=== PATIENT | male | born 1965 | race Caucasian/White ===

== ENCOUNTER 2022-12-29 06:24 | Inpatient (IN) ==
[2022-12-29] MEDS ORDERED: NITROGLYCERIN SL 0.4 MG/TAB TAB SL STA (06:54)
[2022-12-29] MEDS ORDERED: ASPIRIN 81 MG CHEW PO STA (06:54)
--- NOTE | 2022-12-29 06:57 | Emergency Department Note ---
Impression & Plan Left-sided chest pain, Abnormal ECG, T wave inversion in EKG ED Provider Note Name: AILYN PUENTE Age: 57 Sex: M Arrives Via: Walk-In Informant: Patient, ED Provider: Juan R Contreras MD Chief Complaint: Chest pain Impression: As per impressions above Medical Decision Makin-year-old gentleman with a history of hyperlipidemia and BPH who has multiple family members including brothers who had MIs arrives for evaluation of left- sided chest pressure. EKG clearly shows deep lateral T wave inversions and other evidence of ischemia. When compared to an EKG from outside records this is clearly a change. He was given aspirin and sublingual nitroglycerin. In the setting of significant risk factors, patient description, abnormal EKG with acute change from previous there is high concern for ACS and heart alert called for Telecasting Technician activation. I did have several long discussions with patient and that this may not be ACS but could be pleurisy, pericarditis or myocarditis or multiple other causes of chest pain, especially in the setting of him having a viral-like illness for the last few weeks that has resolved. Without leg swelling calf pain or risk factors I think PE is unlikely. His symptoms do not seems consistent with a dissection and I think Telecasting Technician is more important than getting a CTA at this time. I will note that there is some delay to getting labs and a heart alert was not postponed because of this difficulty with labs. Reportedly there was a software issue in the laboratory. Prior Medical Record and Triage/Nursing Notes reviewed by Me External chart review by me including external EKG and outpatient records. Differential: Cardiac ischemia, aortic dissection, pulmonary embolism, pneu mothorax, pneumonia, pericarditis, myocarditis, esophageal rupture, GERD, cholecystitis, pancreatitis, musculoskeletal, as well as other pathologies. Vital Signs: reviewed and remarkable for mild hypertension on arrival Interventions: Aspirin 324 mg p.o., sublingual nitroglycerin 0.4 mg Labs:Reviewed and remarkable for pending at time of transfer to Telecasting Technician, initial CBC unremarkable Imagin view chest x-ray interpreted by me reveals no pneumothorax, pneumonia, widened mediastinum as per my interpretation. Indication chest pain. EKG:As per my interpretation. Indication chest pain. Sinus bradycardia 55 bpm and a QTc of 426. No overt ectopy. There are significant concerns for ischemia. There are diffuse lateral inferior T wave inversions with anterior u pswing of ST elevation. This is an acute change from his EKG in the outpatient setting of 2018. Cardiac/Tele Monitoring: Cardiac Monitoring: An Order was placed for continuous cardiac monitoring. The monitor shows a rate of 60 with a normal sinus rhythm. Consults:Dr Rosario Interventional Cardiology. Dr Isabela Gomez hospitalist Plan: Disposition:Transfer to Telecasting Technician Condition: Good History of Present Illness:57-year-old male arrives for evaluation of chest pain. Patient with left-sided pressure-like chest pain without radiation no other symptoms for the last 2 days. Started yesterday morning when he had woken up and really resolved after some time. Did not really notice anything about day yesterday and then again this morning woke up with increased pressure which is gradually improved though still notes some mild discomfort currently. Denies any current shortness of breath but does note a mild cough which she feels the cough does make symptoms a bit worse. Laying flat movement or walking does not make the chest pain worse. Denies any falls, trauma, injuries. No exposures. He was sick for the last 3 weeks with fevers chills cough cold symptoms which resolved a few days ago. now has similar illness. Denies any previous CAD history but notes he has a known abnormal EKG in the past. He had an echo/stress test about 8 years ago which she notes was normal. He has not had any cardiac issues since. Does note that both his brothers and grandfather had MIs. Patient does not smoke. He does have a history of hyper cholesterolemia. Does not have diabetes or hypertension. Past History:Dyslipidemia, abnormal EKG, kidney stones, BPH Home Medications:rosuvastatin, Flomax Allergies:Amoxicillin Vitals:Blood Pressure: 160/82, Pulse 53, RR 36.4, T 97C, O2 % on RA Physical Exam: GENERAL: Patient is mildly anxious appearing and in no acute distress. RESPIRATORY: No dyspnea. Clear to auscultation and equal bilaterally. No wheeze, no rhonchi. CARDIOVASCULAR: Regular rate and rhythm.No murmurs, rubs, gallops appreciated. GASTROINTESTINAL: Abdomen soft, non-tender, no peritonitis. EXTREMITIES: Normal motion all extremities, no cyanosis, no edema. NEUROLOGIC: Alert and oriented, no focal neuro deficits SKIN: No rash, no jaundice, no diaphoresis. PSYCH: Appropriate GCS: 15 ED Course: Times/Reassessments: Patient with resolution of chest pain after sublingual nitro feeling much better. He looks well and was taken to Telecasting Technician in stable condition Critical Care: I have personally spent 32 minutes of critical care time in the direct management of this patient. Acute WA per history and EKG requiring Telecasting Technician activation and heart alert. This was a life/limb threatening event. This 32 minutes is in excess of all separately billable procedures. Juan R Contreras MD Past Med/Surg History Medical History BPH w urinary obs/LUTS Cervical disc disease Dyslipidemia Mitral regurgitation Surgical History Hx of removal of cyst Sebaceous cyst removal 2009 (Dr. Li) Family History Brother Heart disease Brother Heart disease Father Hypertension Cancer Mother Cancer Social History Smoking Status: Never smoker Second Hand Exposure: No; Hx Alcohol Use: Yes Alcohol type: beer and hard liquor Hx Substance Use: No Preferred Language: Ecuadorean Communication Ability: Effective Lead Sprinkler Required: No Beliefs That Will Affect Care: None Current Living Situation: Spouse Feels Safe at Home: Yes Assistive Devices: None and Glasses Allergies Allergies Allergy/AdvReac Type Severity Reaction Status Date / Time codeine Allergy . Verified 02/10/13 20:47 Home Meds Home Medications Medication Instructions Recorded Confirmed rosuvastatin 10 mg tablet (Crestor) 10 mg PO DAILY 12/29/22 12/29/22 tamsulosin 0.4 mg capsule (Flomax) 0.4 mg PO DAILY 12/29/22 12/29/22 Previous Rx's Medication Instructions Recorded indomethacin 50 mg capsule 50 mg PO TID 7 days #21 caps 12/30/22 Results & Data (ED) Vital Signs Vital Signs - 24 hr 12/29/22 06:30 Temperature 36.4 C L Temperature Source Temporal Artery Scan Pulse Rate 53 L Respiratory Rate 20 Respiratory Effort / Characteristics Non-Labored Spontaneous Respiratory Depth Normal Blood Pressure 160/82 H Blood Pressure Mean 108 Pulse Oximetry 97 Oxygen Delivery Method Room Air Sepsis Recent Fever Within 48 Hours No Sepsis New/Unexplained Change in Mental Status N/A Sepsis Action Taken by Nursing No Action Required Laboratory Data 12/29/22 06:40 12/29/22 06:40 Lab Results 12/29/22 12/29/22 12/29/22 Range/Units 06:40 06:40 07:10 WBC 7.46 (4.8-10.8) K/ul RBC 5.24 (4.70-6.10) M/uL Hgb 15.4 (14.0-18.0) g/dl Hct 45.0 (42.0-52.0) % MCV 85.9 (80.0-100.0) fL MCH 29.4 (25.0-34.0) pg MCHC 34.2 (32.0-36.0) g/dL RDW Std Deviation 41.3 (36.4-46.3) fL RDW Coeff of Job 13.3 (11.5-14.5) % Plt Count 234 (130-400) K/uL MPV 11.0 (9.4-12.4) fL Immature Gran % (Auto) 0.3 % Neut % (Auto) 53.6 % Lymph % (Auto) 28.7 % [place] % (Auto) 9.1 % Eos % (Auto) 7.5 % Baso % (Auto) 0.8 % Neut # (Auto) 4.00 (1.40-6.50) K/uL Lymph # (Auto) 2.14 (1.2-3.4) K/uL [place] # (Auto) 0.68 H (0.11-0.59) K/uL Eos # (Auto) 0.56 H (0-0.50) K/uL Baso # (Auto) 0.06 (0-0.2) K/uL Immature Gran # (Auto) 0.02 (0.01-0.20) K/uL Sodium 140 (136-145) mmol/L Potassium 4.6 (3.5-5.1) mmol/L Chloride 109 H (98-107) mmol/L Carbon Dioxide 23 (21-32) mmol/L Anion Gap 8 (3-11) BUN 17 (6-23) mg/dl Creatinine 1.27 (0.6-1.4) mg/dl Est Cr Clr Drug Dosing 68.3 ml/min Est GFR ( Amer) 71.7 ml/min Est GFR (Non-Af Amer) 61.9 ml/min BUN/Creatinine Ratio 13.4 (10-20) Glucose 103 H (70-99(Fasting)) mg/dl Calcium 8.9 (8.6-10.3) mg/dl Total Bilirubin 0.4 (0.2-1.0) mg/dl AST 24 (13-39) U/L ALT 25 (7-52) U/L Alkaline Phosphatase 44 (34-104) U/L Troponin I High Sens 7.0 (0-20) pg/ml Total Protein 6.3 (6.0-8.3) gm/dl Albumin 3.9 (3.4-5.0) gm/dl Globulin 2.4 L (2.5-4.0) gm/dl Albumin/Globulin Ratio 1.6 (0.9-2) Lipase 41 (11-82) U/L SARS-CoV-2, RNA, NAAT NEGATIVE (NEGATIVE) Administered Medications Discontinued Medications Aspirin (Aspirin 81 Mg Chew) 324 mg PO NOW STA Stop: 12/29/22 06:55 Last Admin: 12/29/22 07:02 Dose: 324 mg Documented By: EDILSON Fentanyl Citrate (Fentanyl Citrate Pf 100 Mcg/2 Ml Vial) Confirm Administered Dose 100 mcg .ROUTE .STK-MED ONE Stop: 12/29/22 07:08 Last Admin: 12/29/22 10:04 Dose: Not Given Documented By: DLF Heparin Sodium (Porcine) (Heparin (Porcine) 1000 Unit/Ml 10 Ml (Telecasting Technician Use Only)) Confirm Administered Dose 10,000 units .ROUTE .STK-MED ONE Stop: 12/29/22 07:07 Last Admin: 12/29/22 10:02 Dose: Not Given Documented By: DLF Heparin Sodium/Sodium Chloride (Heparin In Nss Infusion 1000 Unit/500 Ml (2 U/Ml) Bag) Confirm Administered Dose 3,000 units IV .STK-MED ONE Stop: 12/29/22 07:08 Last Admin: 12/29/22 10:05 Dose: Not Given Documented By: DLF Indomethacin (Indomethacin 25 Mg Cap) 25 mg PO TIDM NISA Stop: 01/29/23 08:59 Last Admin: 12/30/22 09:57 Dose: 25 mg Documented By: FRANSISCA Lisinopril (Lisinopril 5 Mg Tab) 5 mg PO QAM [facility] Stop: 01/28/23 08:59 Last Admin: 12/30/22 09:28 Dose: 5 mg Documented By: Admin: 12/29/22 11:26 Dose: 5 mg Documented By: FRANSISCA Midazolam HCl (Midazolam Hcl 1 Mg/Ml 2ml Vial) Confirm Administered Dose 2 mg .ROUTE .STK-MED ONE Stop: 12/29/22 07:08 Last Admin: 12/29/22 10:05 Dose: Not Given Documented By: FRANSISCA Nicardipine HCl (Nicardipine Hcl Inj 2.5 Mg/Ml 10 Ml Amp) Confirm Administered D ose 25 mg .ROUTE .STK-MED ONE Stop: 12/29/22 07:07 Last Admin: 12/29/22 10:02 Dose: Not Given Documented By: FRANSISCA Nitroglycerin (Nitroglycerin Sl 0.4 Mg/Tab Tab) 0.4 mg SL NOW [facility] Stop: 12/29/22 06:55 Last Admin: 12/29/22 07:02 Dose: 0.4 mg Documented By: EDILSON Nitroglycerin/Dextrose (Nitroglycerin/D5w 100mcg/Ml 20ml Syr) Confirm Administered Dose 2,000 mcg .ROUTE .STK-MED ONE Stop: 12/29/22 07:09 Last Admin: 12/29/22 10:16 Dose: Not Given Documented By: FRANSISCA Rosuvastatin Calcium (Rosuvastatin Calcium 10 Mg Tab) 10 mg PO QAM [facility] Stop: 01/28/23 08:59 Last Admin: 12/30/22 09:28 Dose: 10 mg Documented By: Admin: 12/29/22 11:26 Dose: 10 mg Documented By: FRANSISCA Tamsulosin HCl (Tamsulosin Hcl 0.4 Mg Cap) 0.4 mg PO DAILY [facility] Stop: 01/29/23 08:59 Last Admin: 12/30/22 09:28 Dose: 0.4 mg Documented By: FRANSISCA Discharge Plan Visit Data Chief Complaint: Chest Pain Stated Complaint: CHEST PAIN ED Provider: Juan R Contreras Discharge Problem: Left-sided chest pain, Abnormal ECG, T wave inversion in EKG Patient Disposition: Admitted As Inpatient Discharge Instructions Interventions: ED Discharge Assessment Last Done: 12/29/22 07:33
[2022-12-29] MEDS ORDERED: HEPARIN (PORCINE) 1000 UNIT/ML 10 ML (CATH LAB USE ONLY) ONE (07:06)
[2022-12-29] MEDS ORDERED: niCARdipine HCL INJ 2.5 MG/ML 10 ML AMP ONE (07:06)
[2022-12-29] MEDS ORDERED: MIDAZOLAM HCL 1 MG/ML 2ML VIAL ONE (07:07)
[2022-12-29] MEDS ORDERED: fentaNYL citrate PF 100 MCG/2 ML VIAL ONE (07:07)
--- NOTE | 2022-12-29 07:07 | XRay Report ---
XR chest 1V portable CLINICAL HISTORY: Chest pain, nonspecific COMPARISON STUDY: Chest radiograph February 10, 2013. FINDINGS: Lung volumes are at the lower limits of normal. Lungs are clear. There is no pneumothorax o r pleural effusion. Cardiac size is stable. Mediastinal contours are normal. There is no evidence for pulmonary edema. IMPRESSION: No acute cardiopulmonary findings. No change in appearance of the chest. ACT 112: Negative or not required by law. Electronically signed by: Leon Swift M.D. 12/29/2022 7:06 AM
[2022-12-29] MEDS ORDERED: NITROGLYCERIN/D5W 100MCG/ML 20ML SYR ONE (07:08)
[2022-12-29 07:27] LABS: Basophils # (auto) 0.06 K/uL (0-0.2); Basophils % (auto) 0.8 %; Eosinophils # (auto) 0.56 K/uL (0-0.50); Eosinophils % (auto) 7.5 %; Hemoglobin 15.4 g/dl (14.0-18.0); Immature Granulocytes # (auto) 0.02 K/uL (0.01-0.20); Immature Granulocytes % (auto) 0.3 %; Lymphocytes # (auto) 2.14 K/uL (1.2-3.4); Lymphocytes % (auto) 28.7 %; Mean Corpuscular Hemoglobin 29.4 pg (25.0-34.0); Mean Corpuscular Hgb Conc 34.2 g/dL (32.0-36.0); Mean Corpuscular Volume 85.9 fL (80.0-100.0); Monocytes # (auto) 0.68 K/uL (0.11-0.59); Monocytes % (auto) 9.1 %; Neutrophils % (auto) 53.6 %; Platelet Count 234 K/uL (130-400); RDW Coefficient of Variation 13.3 % (11.5-14.5); RDW Standard Deviation 41.3 fL (36.4-46.3); Red Blood Count 5.24 M/uL (4.70-6.10); White Blood Count 7.46 K/ul (4.8-10.8)
[2022-12-29] MEDS ORDERED: ACETAMINOPHEN 325 MG TAB PO PRN (08:07)
--- NOTE | 2022-12-29 08:45 | Cardiac Catheterization ---
[facility] Data: Systems Lead Cardiac Status Clinical evaluation leading to the procedure CAD Presenation: STEMI Anginal Classification: CCS IV Heart Failure: No Cardiogenic Shock within 24 Hours: No Cardiac Arrest within 24 Hours: No Imaging Studies Past 6 Months: No Stress Studies Past 6 Months: No STEMI OR Non-STEMI Symptom Onset Date: 12/29/22 Symptom Onset Time: 06:00 Thrombolytics: No Coronary Anatomy Dominant: Right Left Main (% Stenosis): Normal LAD (% Stenosis): Mid (30%) D1 (% Stenosis): Normal Circumflex (% Stenosis): Normal OM1 (% Stenosis): Normal OM2 (% Stenosis): Normal RCA (% Stenosis): Mid (30%) R PDA (% Stenosis): Normal R PL1 (% Stenosis): Normal Left Ventricular Angiography EF (%): 50 Diagnostic Physicians Name: Kristopher Rosario MD, PhD Closure Device Percutaneous Entry Location: Radial Closure Device: Radial Band Recommendations: Medical Therapy and/or Counseling Cardiac Cath Procedure Full Procedure Date December 29, 2022 Pre-Procedure Diagnosis Pre-Procedure Diagnosis: STEMI AUC Score AUC Score: 09 Post-Procedure Diagnosis Post-Procedure Diagnosis: Mild CAD, Elevated Intracardiac Pressures and Cardiothoracic Finding (LVH) Procedure(s) Performed Procedure(s) Performed: Coronary Angiography, Left Heart Cath and LV Angiography Assistant Grocery Store Manager Kristopher Rosario MD, PhD Estimated Blood Loss Estimated Blood Loss: Less than 10 mm Medication(s) Medication(s): Fentanyl, Heparin, Lidocaine 1%, Nicardipine, Nitroglycerin and Versed Summary of Findings Brief description: Patient was brought to the cardiac catheterization suite where he was shaved and prepped in sterile fashion. Sedated using IV Versed and fentanyl. Soft tissues of the right wrist were anesthetized using 2 mL of 1% Xylocaine. The right radial artery was accessed using modified Seldinger technique and a 6 Bangladeshi radial artery glide sheath was placed. Patient was provided anticoagulation with IV heparin and antispasmodics including nicardipine and nitroglycerin. All catheters were advanced and exchanged over a 0.035 J-tip wire. Left coronary angiography in orthogonal views with a 5 Bangladeshi JL 3.5 diagnostic catheter. Right coronary angiography in orthogonal views with a 5 Bangladeshi JR4 diagnostic catheter. Left heart cath and left ventriculogram were performed with a 5 Bangladeshi angled pigtail catheter. Diagnostic catheters were removed. Radial artery sheath was removed. Hemostasis was obtained using the TR band. Patient remained hemodynamically stable and asymptomatic. He was returned to the recovery area. This ended the case. Coronary angiography findings: LMT: Large-caliber vessel which bifurcates into the LAD and left circumflex. No angiographically significant disease. LAD: Large caliber and transapical. Provides an early septal trunk at the same level as a large branching first diagonal. Then, the mid segment has mild diffuse less than 30% stenosis. The remainder of the LAD and its branches have no more than mild luminal irregularities. LCx: Large caliber and nondominant. Travels in the AV groove giving a large atrial branch, a large branching OM1, and a small to medium caliber OM 2 before it terminates distally in the AV groove. There is diffuse mild luminal irregularities in the circumflex and its branches. RCA: Large caliber and dominant. Distally bifurcates into a large PDA and a branching posterolateral branch. There is diffuse mild disease with up to 30% stenosis in the midsegment just prior to the transition into the distal segment. The branch vessels have mild luminal irregularities. Left ventriculogram: LVEF is 50% Apical LVH Summary: 1. Mild nonocclusive coronary disease as described 2. Low normal EF with evidence of LVH 3. Mildly elevated left ventricular filling pressure Hemodynamics Rest Ao:: 120/78 mmHg, mean 97 mmHg Final Ao: 132/78 mmHg, mean 86 mmHg LV: 132/13 mmHg, LVEDP 25 mmHg Recommendations Recommendations: Medical Therapy and/or Counseling Radiation Exposure (mGy) 836 mGy Contrast (mls) 55 Anesthesia 1 mg IV Versed, 25 mcg IV fentanyl Procedural Complication(s) None Disposition PCU I attest to the content of the Intraoperative Record and any orders documented therein. Any exceptions are noted below. [facility] Card Cath Procedure Codes Cardiac Catheterization Procedure 1: Cardiovascular Cath Procedures: 76907 Coronaries and LHC (+/-LV) Moderate Sedation Procedure 1: Sedation/Anesthesia: 23878 Mod Sedation by the same physician;Init15 Min Child Age 5 & Up (Initial 15-minute) PG Care Time/CCT Total # of Minutes Spent Total Time Spent with Patient: Total time spent is greater than 50% in coordination of care (as documented) at patient's floor/unit and/or counseling patient:
--- NOTE | 2022-12-29 08:46 | Post Anesthesia Assessment ---
Date of Service December 29, 2022 Post Sedation Assessment Vital Signs Temp Pulse Pulse Resp BP BP Pulse Ox 12/29/22 08:30 46 L 18 114/70 93 12/29/22 08:15 46 L 18 117/75 94 12/29/22 08:05 47 L 18 118/72 94 12/29/22 07:22 54 L 23 131/85 96 12/29/22 07:11 94 12/29/22 07:11 57 L 16 131/85 93 12/29/22 07:08 55 L 12/29/22 06:30 36.4 C L 53 L 20 160/82 H 97 O2 Del Method 12/29/22 08:30 Room Air 12/29/22 08:15 Room Air 12/29/22 08:05 Room Air 12/29/22 07:22 Room Air 12/29/22 07:11 12/29/22 07:11 12/29/22 07:08 12/29/22 06:30 Room Air Recovery Score Activity: Moves 4 extremities Respiration: Deep Breath/Cough Circulation: +/-20% PreAnes Value Consciousness: Fully Awake Oxygen Saturation: > 92% On Room Air Post Anesthesia Score: 10 Discharge Sedation Level of Care: Fast Track Phase II Post Sedation Plan On clinical assessment, the patient appears to have tolerated the sedation without complications. Patient is recovering as anticipated. Patient will continue to be monitored by nursing and may be discharged when sedation discharge criteria are met per below protocol. Upon Completions of procedure up to 15 minutes continue every 5 minute vital signs and the P.A.R. score; then discharge to a Phase I or Fast Track to Phase II per the following guidelines: * Discharge Patient to appropriate Phase II area if PAR is 8 or greater or return to pre- procedure baseline. The post - procedure orders will be as directed. * If PAR score is less than 8 or not return to pre-procedure baseline then patient will follow Phase I monitoring till PAR is reached for Phase II. The Phase I may be done in procedure room or may call to secure a Phase I area. * If naloxone or flumazenil are used for reversal, hold in Phase I for continued monitoring from when last reversal dose was given for a minimum of 60 minutes or longer pending the nurse and/or physician discretion of patient condition before discharge to Phase II. Please call the Sedation Physician to re-evaluate and complete post-note for discharge to Phase II area. Do NOT discharge from procedure sedation or Phase 1 until post- sedation evaluation note is complete by procedure /sedation MD Sedation Discharge Instructions to be given to the patient at discharge to home. [facility] Procedure Codes (Charges) Indication for Procedure Indication for procedure: Chest pain, ST elevations on EKG Sedation/Anesthesia Procedure 1: Sedation/Anesthesia: 95764 Mod Sedation by the same physician;Init15 Min Child Age 5 & Up Total Sedation Time (minutes): 15
--- NOTE | 2022-12-29 08:46 | Pre Anesthesia Assessment ---
Date of Service December 29, 2022 Pre Sedation Assessment Vital Signs Temp Pulse Pulse Resp BP BP Pulse Ox 12/29/22 08:30 46 L 18 114/70 93 12/29/22 08:15 46 L 18 117/75 94 12/29/22 08:05 47 L 18 118/72 94 12/29/22 07:22 54 L 23 131/85 96 12/29/22 07:11 94 12/29/22 07:11 57 L 16 131/85 93 12/29/22 07:08 55 L 12/29/22 06:30 36.4 C L 53 L 20 160/82 H 97 O2 Del Method 12/29/22 08:30 Room Air 12/29/22 08:15 Room Air 12/29/22 08:05 Room Air 12/29/22 07:22 Room Air 12/29/22 07:11 12/29/22 07:11 12/29/22 07:08 12/29/22 06:30 Room Air Cardiovascular RRR, no murmur, no edema Respiratory normal respiratory effort, lungs clear to auscultation Pre-Sedation Airway Assessment Smoking Status: Never smoker Mallampati 2 ASA 3 Notes The planned sedation has been discussed with the patient. Informed Consent was obtained. I have identified the patient, determined the appropriateness of sedation and have assessed the patient immediately prior to the procedure. All medicine(s) and interventions are by my order. [facility] [place] Codes (Charges) Indication for Procedure Indication for procedure: Chest pain, ST elevations
--- NOTE | 2022-12-29 09:24 | History & Physical Report ---
Date of Service December 29, 2022 Assessment & Plan (1) Chest pain: Plan: 57 y/o male with dyslipidemia and BPH presented to the ED this morning with chest pain, found to have EKG changes from baseline so heart alert was called. Cardiac cath showed mild nonocclusive coronary disease and medical management was recommended. There is also a concern for possible pericarditis in view of pt's recent respiratory illness and pattern of pain. ECHO is pending. - Admit to PCU for observation overnight - Trend troponin - ECHO results pending - review once available - CRP and sed rate with next lab draw - Lisinopril added by interventional cardio - will continue - Continue outpatient statin - lipid panel pending - Consult non-interventional cardiology as pt will need f/u as outpatient - Labs in AM (2) Dyslipidemia: Plan: - Continue statin (3) BPH w urinary obs/LUTS: Plan: - Continue Flomax Plan Pt seen and reviewed with attending physician, Dr. Osorio. Plan of care discussed and as outlined above. Code Status: Full Code Tati Montes PA-C History of Present Illness Chief Complaint: Heart Alert Primary Care Provider: NO PCP This is a 57 y/o male with a PMH of dyslipidemia and BPH who presented to the ED today with chest pain - a heart alert was called in the ED due to EKG changes, ongoing chest pain. Had transient chest pain yesterday but went away so didn't come for evaluation. This morning, around 4:30 am, chest pain woke him from sleep. Called the telenurse who recommended ED evaluation. Denies palpitatio ns, syncope, N/V/D, MOYA, fevers, chills. He was sick for about three weeks with respiratory symptoms - seemed to get better around five days ago and was back to baseline. Was having MOYA and significant exertional fatigue but that seemed to have improved as well. Does have some orthostatic dizziness but attributes to the Flomax he takes. This has not recently changed. Initially chest pain was completely relieved in the ED with nitro but now has noted some returning mild chest discomfort after cath. He denies any similar chest pain previously. He also notes that his HR today is lower than usually - baseline HR is 55-60. Typically, very active at baseline - able to heavy lift without difficulty. Chest pain is not reproducible with palpation. No recent trauma to chest. History stress test years ago that was normal. Two brothers, grandfather all had MIs. Allergies Allergy/AdvReac Type Severity Reaction Status Date / Time codeine Allergy . Verified 02/10/13 20:47 Home Medications Medication Instructions Recorded Confirmed Type rosuvastatin 10 mg tablet (Crestor) 10 mg PO DAILY 12/29/22 12/29/22 History tamsulosin 0.4 mg capsule (Flomax) 0.4 mg PO DAILY 12/29/22 12/29/22 History Past Med/Surg History Medical History BPH w urinary obs/LUTS Cervical disc disease Dyslipidemia Mitral regurgitation Surgical History Hx of removal of cyst Sebaceous cyst removal 2009 (Dr. 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 Beliefs That Will Affect Care: None Current Living Situation: Spouse Other Information That Helps Us Care for You: No Feels Safe at Home: Yes Safety Concerns: Feels Safe At This Time Assistive Devices: None and Glasses Review of Systems Review of Systems: All systems reviewed & are unremarkable except as noted in HPI & below Constitutional: no fever, no chills and no sweats Eyes: no diplopia Ear, Nose, Mouth, Throat: as per Subjective / HPI Respiratory: + cough; no dyspnea Cardiovascular: + chest pain; no palpitations and no syncope Gastrointestinal: no abdominal pain, no nausea and no vomiting Genitourinary: no dysuria or no hematuria Musculoskeletal: no back pain and no neck pain Integumentary: no rash Neurologic: no generalized weakness and no headache(s) Psychiatric: no depression and no anxiety Physical Exam Constitutional: well developed and well nourished; no acute distress Eyes: + anicteric sclerae Neck: trachea midline Respiratory: no respiratory distress and no labored breathing Auscultation: lungs clear to auscultation bilaterally; no rales, no rhonchi and no wheezes Cardiovascular: Rate/Rhythm: regular rhythm and + bradycardic Gastrointestinal (Abdomen): Inspection/Auscultation: normal bowel sounds; abdomen not distended Percussion/Palpation: abdomen soft; abdomen nontender Musculoskeletal: Head/Neck/Chest: normocephalic, head atraumatic and neck supple Skin: no jaundice Neurologic: moves all extremities; no focal motor deficits and not confused Psychiatric: A+Ox3, euthymic affect Results & Data Results & Data Vital Signs (Past 12 Hours) Vital Signs Temp Pulse Pulse Resp BP BP Pulse Ox 12/29/22 09:17 36.8 C 45 L 18 135/73 97 12/29/22 08:45 45 L 18 108/71 93 12/29/22 08:30 46 L 18 114/70 93 12/29/22 08:15 46 L 18 117/75 94 12/29/22 08:05 47 L 18 118/72 94 12/29/22 07:22 54 L 23 131/85 96 12/29/22 07:11 94 12/29/22 07:11 57 L 16 131/85 93 12/29/22 07:08 55 L 12/29/22 06:30 36.4 C L 53 L 20 160/82 H 97 O2 Del Method 12/29/22 09:17 Room Air 12/29/22 08:45 Room Air 12/29/22 08:30 Room Air 12/29/22 08:15 Room Air 12/29/22 08:05 Room Air 12/29/22 07:22 Room Air 12/29/22 07:11 12/29/22 07:11 12/29/22 07:08 12/29/22 06:30 Room Air Laboratory Results Laboratory Results - last 24 hr 12/29/22 12/29/22 12/29/22 06:40 06:40 07:10 WBC 7.46 RBC 5.24 Hgb 15.4 Hct 45.0 MCV 85.9 MCH 29.4 MCHC 34.2 RDW Std Deviation 41.3 RDW Coeff of Job 13.3 Plt Count 234 MPV 11.0 Immature Gran % (Auto) 0.3 Neut % (Auto) 53.6 Lymph % (Auto) 28.7 Prentiss % (Auto) 9.1 Eos % (Auto) 7.5 Baso % (Auto) 0.8 Neut # (Auto) 4.00 Lymph # (Auto) 2.14 Prentiss # (Auto) 0.68 H Eos # (Auto) 0.56 H Baso # (Auto) 0.06 Immature Gran # (Auto) 0.02 Sodium 140 Potassium 4.6 Chloride 109 H Carbon Dioxide 23 Anion Gap 8 BUN 17 Creatinine 1.27 Est Cr Clr Drug Dosing 68.3 Est GFR ( Amer) 71.7 Est GFR (Non-Af Amer) 61.9 BUN/Creatinine Ratio 13.4 Glucose 103 H Calcium 8.9 Total Bilirubin 0.4 AST 24 ALT 25 Alkaline Phosphatase 44 Troponin I High Sens 7.0 Total Protein 6.3 Albumin 3.9 Globulin 2.4 L Albumin/Globulin Ratio 1.6 Triglycerides Cholesterol LDL Cholesterol, Calc VLDL Cholesterol, Calc HDL Cholesterol Cholesterol/HDL Ratio Lipase 41 SARS-CoV-2, RNA, NAAT NEGATIVE 12/29/22 10:31 WBC RBC Hgb Hct MCV MCH MCHC RDW Std Deviation RDW Coeff of Job Plt Count MPV Immature Gran % (Auto) Neut % (Auto) Lymph % (Auto) Prentiss % (Auto) Eos % (Auto) Baso % (Auto) Neut # (Auto) Lymph # (Auto) Prentiss # (Auto) Eos # (Auto) Baso # (Auto) Immature Gran # (Auto) Sodium Potassium Chloride Carbon Dioxide Anion Gap BUN Creatinine Est Cr Clr Drug Dosing Est GFR ( Amer) Est GFR (Non-Af Amer) BUN/Creatinine Ratio Glucose Calcium Total Bilirubin AST ALT Alkaline Phosphatase Troponin I High Sens 7.5 Total Protein Albumin Globulin Albumin/Globulin Ratio Triglycerides 79 Cholesterol 109 LDL Cholesterol, Calc 54 VLDL Cholesterol, Calc 16 HDL Cholesterol 39 Cholesterol/HDL Ratio 2.8 Lipase SARS-CoV-2, RNA, NAAT Diagnostic Findings Chest X-Ray 12/29/22 06:35 XR chest 1V portable CLINICAL HISTORY: Chest pain, nonspecific COMPARISON STUDY: Chest radiograph February 10, 2013. FINDINGS: Lung volumes are at the lower limits of normal. Lungs are clear. There is no pneumothorax or pleural effusion. Cardiac size is stable. Mediastinal contours are normal. There is no evidence for pulmonary edema. IMPRESSION: No acute cardiopulmonary findings. No change in appearance of the chest. Medications Administered Lisinopril (Lisinopril 5 Mg Tab) 5 mg PO [facility] Stop: 01/28/23 08:59 Last Admin: 12/29/22 11:26 Dose: 5 mg Documented By: DLF Rosuvastatin Calcium (Rosuvastatin Calcium 10 Mg Tab) 10 mg PO [facility] Stop: 01/28/23 08:59 Last Admin: 12/29/22 11:26 Dose: 10 mg Documented By: DLF Discontinued Medications Aspirin (Aspirin 81 Mg Chew) 324 mg PO NOW [facility] Stop: 12/29/22 06:55 Last Admin: 12/29/22 07:02 Dose: 324 mg Documented By: EDILSON Fentanyl Citrate (Fentanyl Citrate Pf 100 Mcg/2 Ml Vial) Confirm Administered Dose 100 mcg .ROUTE .STK-MED ONE Stop: 12/29/22 07:08 Last Admin: 12/29/22 10:04 Dose: Not Given Documented By: DLF Heparin Sodium (Porcine) (Heparin (Porcine) 1000 Unit/Ml 10 Ml (Radio Recorder Use Only)) Confirm Administered Dose 10,000 units .ROUTE .STK-MED ONE Stop: 12/29/22 07:07 Last Admin: 12/29/22 10:02 Dose: Not Given Documented By: DLF Heparin Sodium/Sodium Chloride (Heparin In Nss Infusion 1000 Unit/500 Ml (2 U/Ml) Bag) Confirm Administered Dose 3,000 units IV .STK-MED ONE Stop: 12/29/22 07:08 Last Admin: 12/29/22 10:05 Dose: Not Given Documented By: LAURAF Midazolam HCl (Midazolam Hcl 1 Mg/Ml 2ml Vial) Confirm Administered Dose 2 mg .ROUTE .STK-MED ONE Stop: 12/29/22 07:08 Last Admin: 12/29/22 10:05 Dose: Not Given Documented By: DLF Nicardipine HCl (Nicardipine Hcl Inj 2.5 Mg/Ml 10 Ml Amp) Confirm Administered Dose 25 mg .ROUTE .STK-MED ONE Stop: 12/29/22 07:07 Last Admin: 12/29/22 10:02 Dose: Not Given Documented By: DLF Nitroglycerin (Nitroglycerin Sl 0.4 Mg/Tab Tab) 0.4 mg SL NOW [facility] Stop: 12/29/22 06:55 Last Admin: 12/29/22 07:02 Dose: 0.4 mg Documented By: EDILSON Nitroglycerin/Dextrose (Nitroglycerin/D5w 100mcg/Ml 20ml Syr) Confirm Administered Dose 2,000 mcg .ROUTE .STK-MED ONE Stop: 12/29/22 07:09 Last Admin: 12/29/22 10:16 Dose: Not Given Documented By: DLF Code Status & VTE Plan VTE Prophylaxis Plan VTE Prophylaxis will be ordered: No Supervising Physician Co-Signing Physician Notes Patient seen and examined independently. Discussed with above provider. 57-year-old male with past medical history of hyperlipidemia presented with acute onset of chest pain. EKG personally reviewed; sinus bradycardia T wave inversion in anterior lateral leads. ST depression in lateral leads High-sensitivity troponin negative twice Heart alert was called. Patient underwent left heart cath. Mild nonocclusive coronary artery disease. Low normal EF and mildly elevated left ventricular filling pressure Echocardiogram pending Obtain ESR, CRP and repeat troponin Cardiology on board; appreciate recommendation. Patient is started on lisinopril and rosuvastatin. LDL of 54.
[2022-12-29 10:05] LABS: Albumin Level 3.9 gm/dl (3.4-5.0); Bilirubin,Total 0.4 mg/dl (0.2-1.0); Calcium 8.9 mg/dl (8.6-10.3); Potassium 4.6 mmol/L (3.5-5.1)
[2022-12-29 10:11] LABS: Albumin Globulin Ratio 1.6 (0.9-2); BUN Creatinine Ratio 13.4 (10-20); Creatinine Clr Calc Pharmacy 68.3 ml/min; Est GFR (African American) 71.7 ml/min; Est GFR (Non-African American) 61.9 ml/min; Globulin 2.4 gm/dl (2.5-4.0); Total Protein 6.3 gm/dl (6.0-8.3)
[2022-12-29 11:05] LABS: Chol HDL Ratio 2.8 (0-5)
[2022-12-29 11:12] LABS: Troponin I High Sensitivity 7.5 pg/ml (0-20)
[2022-12-29] MEDS: lisinopril 5 MG TAB PO SCH (11:26)
[2022-12-29] MEDS: ROSUVASTATIN CALCIUM 10 MG TAB PO SCH (11:26)
--- NOTE | 2022-12-29 16:00 | Cardiology Consultation ---
Date of Consultation December 29, 2022 Assessment & Plan (1) Chest pain: (2) Apical variant hypertrophic cardiomyopathy: (3) Pleurisy: Plan 57-year-old male present to the emergency department with chest discomfort. Due to ECG abnormalities patient was taken immediately to the cardiac catheterization lab for coronary angiography. Images personally reviewed demonstrating nonobstructive coronary disease. Left ventriculogram concerning for possible apical variant hypertrophic cardiomyopathy. Echocardiogram demonstrating preserved LV systolic function with similar findings. Recommend repeat limited echocardiographic images for further assessment of apical hypertrophy. Outpatient cardiac MRI recommended. Pleuritic chest discomfort has resolved. Recent history significant for viral upper respiratory tract infection and possible bronchitis. There is no evidence of pericarditis. ECG similar to prior tracings dating back to 2009, no pericardial fusion per echocardiogram. Consider course of anti-inflammatory therapy and/or colchicine as per internal medicine. History of Present Illness Reason for Consultation: chest pain Requesting Physician: Dr. Osorio Attending Physician: Laurent Osorio MD History of Present Illness 57-year-old male present to the emergency department with chest pain. Describes a left-sided and substernal chest discomfort beginning in the middle of the night. Discomfort worse with deep breathing and cough. He came to the ER for further evaluation and treatment. ECG in the ER demonstrating ST-T wave abnormality. He was taken to the cardiac catheterization lab as a heart alert. Nonobstructive CAD noted. Currently the patient is pain-free. Pleuritic chest discomfort has resolved. CRP pending. Review of bedside 2D transthoracic echocardiogram demonstrates normal left ventricular systolic function with possible apical hypertrophy. No regional wall motion abnormalities or pericardial effusion. Patient previously evaluated by the undersigned in 2012 due to abnormal ECG, family history, and chest pain. Stress testing performed at that time negative for inducible ischemia. Review of ECGs dating back to [address]-T wave abnormality similar to ECG on presentation. High-sensitivity troponin are within normal limits. No dysrhythmias on telemetry. Patient voices concern regarding sinus bradycardia, however, review of ECGs dating back to 2009 demonstrates sinus bradycardia with heart rates in the 40s. Allergies Allergy/AdvReac Type Severity Reaction Status Date / Time codeine Allergy . Verified 02/10/13 20:47 Home Medications Medication Instructions Recorded Confirmed Type rosuvastatin 10 mg tablet (Crestor) 10 mg PO DAILY 12/29/22 12/29/22 History tamsulosin 0.4 mg capsule (Flomax) 0.4 mg PO DAILY 12/29/22 12/29/22 History indomethacin 50 mg capsule 50 mg PO TID 7 days #21 caps 12/30/22 Rx Patient History Medical History BPH w urinary obs/LUTS Cervical disc disease Dyslipidemia Mitral regurgitation Surgical History Hx of removal of cyst Sebaceous cyst removal 2009 (Dr. Li) Family History Brother Heart disease Brother Heart disease Father Hypertension Cancer Mother Cancer Social History Smoking Status: Never smoker Second Hand Exposure: No; Do You Dip or Chew Tobacco: No; Tobacco Cessation Education Requested by Patient: No Hx Alcohol Use: Yes Alcohol type: beer and hard liquor Hx Substance Use: No Preferred Language: Greenlandic Communication Ability: Effective Manager Of Hospital Required: No Beliefs That Will Affect Care: None Current Living Situation: Spouse Other Information That Helps Us Care for You: No Feels Safe at Home: Yes Safety Concerns: Feels Safe At This Time Assistive Devices: None and Glasses Review of Systems Review of Systems: All systems reviewed & are unremarkable except as noted in Subjective Physical Exam Constitutional: well nourished; no acute distress Respiratory: no respiratory distress, no labored breathing and no retractions Auscultation: no crackles, no rales, no rhonchi and no wheezes Cardiovascular: Rate/Rhythm: regular rate and regular rhythm Heart Sounds: normal S1 and normal S2; no murmur and no cardiac rub Vessels: radial pulses present; no JVD and no carotid bruit Extremities: no edema Gastrointestinal (Abdomen): Inspection/Auscultation: abdomen normal to inspec tion and normal bowel sounds; abdomen not distended Percussion/Palpation: abdomen soft; abdomen nontender, no guarding and abdomen not rigid Neurologic: CN's II-XI intact bilaterally and moves all extremities; no focal motor deficits Results & Data Vital Signs (Past 12 Hours) Vital Signs Temp Pulse Pulse Resp BP BP Pulse Ox 12/29/22 15:04 36.8 C 46 L 18 124/88 98 04/17/23 13:00 49 L 18 120/80 12/29/22 09:58 49 L 18 138/76 97 12/29/22 11:32 47 L 12/29/22 12:02 48 L 132/72 12/29/22 11:24 47 L 18 130/77 12/29/22 11:00 45 L 18 147/67 H 12/29/22 10:22 47 L 18 126/77 12/29/22 09:40 47 L 18 125/79 97 12/29/22 09:17 36.8 C 45 L 18 135/73 97 12/29/22 08:45 45 L 18 108/71 93 12/29/22 08:30 46 L 18 114/70 93 12/29/22 08:15 46 L 18 117/75 94 12/29/22 08:05 47 L 18 118/72 94 12/29/22 07:22 54 L 23 131/85 96 12/29/22 07:11 94 12/29/22 07:11 57 L 16 131/85 93 12/29/22 07:08 55 L 12/29/22 06:30 36.4 C L 53 L 20 160/82 H 97 O2 Del Method 12/29/22 15:04 Room Air 12/29/22 13:00 Room Air 12/29/22 09:58 Room Air 12/29/22 11:32 12/29/22 12:02 12/29/22 11:24 12/29/22 11:00 12/29/22 10:22 12/29/22 09:40 Room Air 12/29/22 09:17 Room Air 12/29/22 08:45 Room Air 12/29/22 08:30 Room Air 12/29/22 08:15 Room Air 12/29/22 08:05 Room Air 12/29/22 07:22 Room Air 12/29/22 07:11 12/29/22 07:11 12/29/22 07:08 12/29/22 06:30 Room Air Laboratory Results Cardiac Enzymes 12/29/22 12/29/22 Range/Units 06:40 10:31 AST 24 (13-39) U/L Troponin I High Sens 7.0 7.5 (0-20) pg/ml Lipids 04/17/23 Range/Units 10:31 Triglycerides 79 (0-150) mg/dl Cholesterol 109 (0-200) mg/dl HDL Cholesterol 39 mg/dl Cholesterol/HDL Ratio 2.8 (0-5) CBC 12/29/22 Range/Units 06:40 WBC 7.46 (4.8-10.8) K/ul RBC 5.24 (4.70-6.10) M/uL Hgb 15.4 (14.0-18.0) g/dl Hct 45.0 (42.0-52.0) % Plt Count 234 (130-400) K/uL Neut # (Auto) 4.00 (1.40-6.50) K/uL Lymph # (Auto) 2.14 (1.2-3.4) K/uL Josephine # (Auto) 0.68 H (0.11-0.59) K/uL Eos # (Auto) 0.56 H (0-0.50) K/uL Baso # (Auto) 0.06 (0-0.2) K/uL Comprehensive Metabolic Panel 12/29/22 Range/Units 06:40 Sodium 140 (136-145) mmol/L Potassium 4.6 (3.5-5.1) mmol/L Chloride 109 H (98-107) mmol/L Carbon Dioxide 23 (21-32) mmol/L BUN 17 (6-23) mg/dl Creatinine 1.27 (0.6-1.4) mg/dl Glucose 103 H (70-99(Fasting)) mg/dl Calcium 8.9 (8.6-10.3) mg/dl AST 24 (13-39) U/L ALT 25 (7-52) U/L Alkaline Phosphatase 44 (34-104) U/L Total Protein 6.3 (6.0-8.3) gm/dl Albumin 3.9 (3.4-5.0) gm/dl Intake and Output 12/29/22 12/29/22 12/29/22 06:59 14:59 22:59 Intake Total 240 / 240 Balance 240 / 240 Intake: Oral 240 / 240 Other: # Unmeasured Voids 1 Weight 94.7 kg Weight Measurement Method Chair Scale
[2022-12-29 17:07] LABS: C Reactive Protein < 0.50 mg/dl (0-0.5)
[2022-12-29 17:12] LABS: Troponin I High Sensitivity 9.1 pg/ml (0-20)
--- NOTE | 2022-12-29 17:43 | Electrocardiogram Report ---
Test Reason : Blood Pressure : / mmHG Vent. Rate : 055 BPM Atrial Rate : 055 BPM P-R Int : 182 ms QRS Dur : 090 ms QT Int : 446 ms P-R-T Axes : 066 -05 254 degrees QTc Int : 426 ms Poor data quality, interpretation may be adversely affected Sinus bradycardia Minimal voltage criteria for LVH, may be normal variant Abnormal ECG No previous ECGs available Confirmed by Matt Hammonds ([id number]) on 12/29/2022 5:43:45 PM Referred By: Confirmed By:Lasha Hammonds
--- NOTE | 2022-12-29 17:50 | Electrocardiogram Report ---
Test Reason : Blood Pressure : / mmHG Vent. Rate : 049 BPM Atrial Rate : 049 BPM P-R Int : 184 ms QRS Dur : 092 ms QT Int : 454 ms P-R-T Axes : 012 -08 249 degrees QTc Int : 410 ms Sinus bradycardia Moderate voltage criteria for LVH, may be normal variant Abnormal ECG When compared with ECG of 29-DEC-2022 06:38, (unconfirmed) No significant change was found Confirmed by Matt Hammonds ([id number]) on 12/29/2022 5:49:40 PM Referred By: SELF Confirmed By:Lasha Hammonds
[2022-12-30 07:12] LABS: Basophils # (auto) 0.05 K/uL (0-0.2); Basophils % (auto) 0.7 %; Eosinophils # (auto) 0.42 K/uL (0-0.50); Hemoglobin 15.7 g/dl (14.0-18.0); Immature Granulocytes # (auto) 0.03 K/uL (0.01-0.20); Immature Granulocytes % (auto) 0.4 %; Lymphocytes # (auto) 2.04 K/uL (1.2-3.4); Lymphocytes % (auto) 29.2 %; Mean Corpuscular Hemoglobin 29.2 pg (25.0-34.0); Mean Corpuscular Hgb Conc 34.9 g/dL (32.0-36.0); Mean Corpuscular Volume 83.6 fL (80.0-100.0); Mean Platelet Volume 10.8 fL (9.4-12.4); Monocytes # (auto) 0.59 K/uL (0.11-0.59); Monocytes % (auto) 8.5 %; Neutrophils # (auto) 3.85 K/uL (1.40-6.50); Neutrophils % (auto) 55.2 %; Platelet Count 215 K/uL (130-400); RDW Coefficient of Variation 13.2 % (11.5-14.5); RDW Standard Deviation 40.3 fL (36.4-46.3); Red Blood Count 5.38 M/uL (4.70-6.10); White Blood Count 6.98 K/ul (4.8-10.8)
[2022-12-30 07:12] LABS: BUN Creatinine Ratio 15.7 (10-20); Calcium 8.6 mg/dl (8.6-10.3); Creatinine Clr Calc Pharmacy 80.3 ml/min; Est GFR (African American) 87.2 ml/min; Est GFR (Non-African American) 75.3 ml/min; Potassium 4.1 mmol/L (3.5-5.1)
[2022-12-30 08:44] LABS: Estimated Average Glucose 114 mg/dl; Hemoglobin A1C 5.6 % (4.5-5.6)
[2022-12-30] MEDS ORDERED: INDOMETHACIN 25 MG CAP PO SCH (09:00)
[2022-12-30] MEDS ORDERED: TAMSULOSIN HCL 0.4 MG CAP PO SCH (09:00)
[2022-12-30] MEDS: ROSUVASTATIN CALCIUM 10 MG TAB PO SCH (09:28)
[2022-12-30] MEDS: lisinopril 5 MG TAB PO SCH (09:28)
--- NOTE | 2022-12-30 10:57 | Electrocardiogram Report ---
Test Reason : Blood Pressure : / mmHG Vent. Rate : 050 BPM Atrial Rate : 050 BPM P-R Int : 182 ms QRS Dur : 090 ms QT Int : 454 ms P-R-T Axes : 021 003 246 degrees QTc Int : 413 ms Sinus bradycardia Abnormal ECG When compared with ECG of 29-DEC-2022 07:00, No significant change was found Confirmed by Matt Hammonds ([id number]) on 12/30/2022 10:56:48 AM Referred By: REFERRED SELF Confirmed By:Lasha Hammonds
--- NOTE | 2022-12-30 11:53 | Discharge Summary ---
Date of Service December 30, 2022 Admission HPI Per Admitting Provider This is a 57 y/o male with a PMH of dyslipidemia and BPH who presented to the ED today with chest pain - a heart alert was called in the ED due to EKG changes, ongoing chest pain. Had transient chest pain yesterday but went away so didn't come for evaluation. This morning, around 4:30 am, chest pain woke him from sleep. Called the telenurse who recommended ED evaluation. Denies palpitations, syncope, N/V/D, MOYA, fevers, chills. He was sick for about three weeks with respiratory symptoms - seemed to get better around five days ago and was back to baseline. Was having MOYA and significant exertional fatigue but that seemed to have improved as well. Does have some orthostatic dizziness but attributes to the Flomax he takes. This has not recently changed. Initially chest pain was completely relieved in the ED with nitro but now has noted some returning mild chest discomfort after cath. He denies any similar chest pain previously. He also notes that his HR today is lower than usually - baseline HR is 55-60. Typically, very active at baseline - able to heavy lift without difficulty. Chest pain is not reproducible with palpation. No recent trauma to chest. History stress test years ago that was normal. Two brothers, grandfather all had MIs. Admission Exam Per Admitting Provider Constitutional: well developed and well nourished; no acute distress Eyes: + anicteric sclerae Neck: trachea midline Respiratory: no respiratory distress and no labored breathing Auscultation: lungs clear to auscultation bilaterally; no rales, no rhonchi and no wheezes Cardiovascular: Rate/Rhythm: regular rhythm and + bradycardic Gastrointestinal (Abdomen): Inspection/Auscultation: normal bowel sounds; abdomen not distended Percussion/Palpation: abdomen soft; abdomen nontender Musculoskeletal: Head/Neck/Chest: normocephalic, head atraumatic and neck supple Skin: no jaundice Neurologic: moves all extremities; no focal motor deficits and not confused Psychiatric: A+Ox3, euthymic affect Principal Diagnosis Chest pain, ACS ruled out Likely pericarditis. Apical hypertrophic cardiomyopathy Discharge Exam Constitutional: WD/WN, vitals as above, NAD, sitting up in bed, pleasant, conversing easily Respiratory: normal respiratory effort, lungs clear to auscultation, no wheeze, rales, rhonchi. Normal insp/exp effort, no accessory muscle use Cardiovascular: RRR, no murmur, no edema Vessels: no JVD or carotid bruit Chest: normal inspection of chest Abdomen: normal bowel sounds, soft, nontender, no hepatosplenomegaly Musculoskeletal: no cyanosis or clubbing, extremities motor strength 5/5 Skin: no rashes, warm and dry normal turgor Neurologic: PERRL, EOMI, accommodation nl, no face palsy, no dysarthria CN's II- XI intact bilaterally and moves all extremities Psychiatric: A+Ox3, euthymic affect Lymphatic: no cervical or axillary lymphadenopathy : deferred Discharge Data Allergies Allergy/AdvReac Type Severity Reaction Status Date / Time codeine Allergy . Verified 02/10/13 20:47 Consultations 12/29/22 07:26 ED Decision to Admit Stat 12/29/22 09:27 Consult Hospitalist Stat 12/29/22 11:02 Consult Cardiology Routine Procedures Performed Operation Date: 12/29/22 07:15 Actual Procedures p Cath, Left with Cors and Vent - Kristopher Rosario MD, PhD s Cineradiography w/Routine Exam - Kristopher Rosario MD, PhD Ordered Studies 12/29/22 07:10 CL Cath Imgs for PACS use only Stat Hospital Course (1) Chest pain: (2) Dyslipidemia: (3) BPH w urinary obs/LUTS: (4) Apical variant hypertrophic cardiomyopathy: Plan Patient is a 57-year-old male with past medical history of hyperlipidemia presented to the hospital with chest pain. EKG on admission showed deep T wave inversion in lateral leads. Heart alert was called. Patient was taken to cardiac cath and underwent coronary angiography; it showed nonobstructive coronary artery disease. Left ventriculogram was concerning for apical variant hypertrophic cardiomyopathy. Echocardiogram showed preserved LV systolic function with similar finding. Patient was evaluated by general cardiology; recommended to consider course of anti-inflammatory for chest discomfort. Patient was discharged on 1 week of indomethacin. He will follow-up with cardiology and will have outpatient cardiac MRI. Patient to also follow-up with his primary care doctor next week. Total Time Total Time Spent Total Time Spent (In Minutes): 35 Total Time Includes: Examination of the Patient, Discharge Planning, Medication Reconciliation, Communication With Other Providers and Other Discharge Plan Discharge Items Patient Disposition: Home - Self-Care Reason For Visit: CHEST PAIN Discharge Diagnosis: Chest pain, ACS ruled out. Likely pericarditis Activity: Resume your previous activity Non-emergency contact: Primary Care Provider Call non-emergency contact if: you have any medication questions and your symptoms worsen Follow-up/Referrals: Raul Travis DO [Outside Practitioners] - (Date & Time 01/05/2023 7:40 AM Provider Raul Travis DO Department [facility] ) Diet: Regular Addtl Attending Provider Instructions: You were admitted to the hospital with chest pain. The most likely cause for the chest pain is due to pericarditis. You are prescribed indomethacin 50 mg to be taken 3 times daily for 7 days. Please take it with food. An appointment will be set up for you with your primary care doctor for next week. Cardiology will arrange for imaging for cardiac MRI and cardiology follow-up in the next few weeks. You will receive a call from them. Pending Studies at Discharge: No Stand-Alone Forms: [facility] [employer], Smoking Cessation Medications and DC Order Prescriptions: New indomethacin 50 mg capsule 50 mg PO TID 7 Days Qty: 21 0RF Rx Instructions: administer with food or milk Continued tamsulosin [Flomax] 0.4 mg capsule 0.4 mg PO DAILY rosuvastatin [Crestor] 10 mg tablet 10 mg PO DAILY Discharge Orders: Discharge Order (Routine); Ordered 12/30/22 Ordered By: Laurent Smith/Other Patient Handouts: Pericarditis Admission Data Admit Date/Time: 12/29/22 08:26 Attending Provider: Laurent Osorio Admit Provider: Kristopher Rosario Primary Care Provider: PCP,NO Other Providers: Laurent Osorio ; Juarez Montgomery Other Interventions: Discharge Summary Assessment (RN) Last Done: 12/30/22 10:25
== END 2022-12-30 11:26 | disposition home or self-care (01) | DRG 287 ==
LOC: ED 06:24 → CC 07:30 → 2E 07:33 → SUATTDRO 08:26

== ENCOUNTER 2023-03-09 09:45 | Observation (INO) ==
[2023-03-09 10:15] LABS: Hemoglobin 14.6 g/dl (14.0-18.0); Mean Corpuscular Hemoglobin 28.7 pg (25.0-34.0); Mean Corpuscular Volume 84.5 fL (80.0-100.0); Mean Platelet Volume 9.7 fL (9.4-12.4); Platelet Count 238 K/uL (130-400); RDW Coefficient of Variation 13.2 % (11.5-14.5); RDW Standard Deviation 40.7 fL (36.4-46.3); Red Blood Count 5.09 M/uL (4.70-6.10); White Blood Count 8.03 K/ul (4.8-10.8)
--- NOTE | 2023-03-09 10:23 | XRay Report ---
SINGLE VIEW CHEST CLINICAL HISTORY: Atypical chest pain. FINDINGS: An AP, portable, upright chest radiograph is compared to study dated 12/29/2022. The heart i s mildly enlarged. The pulmonary vasculature is noncongested. The lungs and pleural spaces are clear noting mild bibasilar atelectasis. No pneumothorax is seen. The bony thorax is grossly intact. IMPRESSION: No acute cardiopulmonary abnormality. ACT 112: Negative or not required by law. Electronically signed by: Fan Sargent M.D. 03/09/2023 10:20 AM
[2023-03-09 10:34] LABS: Albumin Globulin Ratio 1.6 (0.9-2); Albumin Level 3.9 gm/dl (3.4-5.0); BUN Creatinine Ratio 11.8 (10-20); Bilirubin,Total 0.5 mg/dl (0.2-1.0); Est GFR (African American) 77.6 ml/min; Est GFR (Non-African American) 66.9 ml/min; Globulin 2.5 gm/dl (2.5-4.0); Potassium 4.4 mmol/L (3.5-5.1); Total Protein 6.4 gm/dl (6.0-8.3)
[2023-03-09 10:37] LABS: ANC (manual) 3.05 K/uL (1.4-6.5); Eosinophils # (manual) 0.08 K/uL (0-0.50); Eosinophils % (manual) 1 %; Lymphocytes # (manual) 1.28 K/uL (1.2-3.4); Lymphocytes % (manual) 16 %; Monocytes % (manual) 5 %; Neutrophils # (manual) 3.05 K/uL (1.40-6.50); Neutrophils % (manual) 38 %; Reactive Lymphocytes # (manual) 3.21 K/uL; Reactive Lymphocytes % (manual) 40 %
[2023-03-09 10:39] LABS: Troponin I High Sensitivity 5.4 pg/ml (0-20)
[2023-03-09] MEDS ORDERED: NITROGLYCERIN SL 0.4 MG/TAB TAB SL PRN (11:13)
[2023-03-09] MEDS ORDERED: ASPIRIN CHEW 324 MG PO STA (11:13)
--- NOTE | 2023-03-09 11:13 | Emergency Department Note ---
Impression & Plan Chest pain, Abnormal ECG, Apical variant hypertrophic cardiomyopathy ED Provider Note NAME: AILYN PUENTE AGE: 57 SEX: M : 1965 ARRIVES VIA: Ambulance INFORMANT: Patient ED PROVIDER(S): Iron Virk DO CHIEF COMPLAINT: chest pain HPI: Patient is a 57-year-old male with a past medical history of apical variant hypertrophic cardiomyopathy, BPH, dyslipidemia and CAD who presents to the ER for just left of midsternal chest tightness. He notes he had this , Thursday, and Thursday. He was not present Thursday. He woke up this morning around 730 and it was present as well. He went to see his PCP and the symptoms resolved with nitro. It did recur just as he arrived here. Denies any belly pain, nausea, vomiting, or diarrhea. No dysuria, urgency, or frequency. No other exacerbating or remitting factors. PAST MEDICAL HISTORY:See Below PAST SURGICAL HISTORY:See Below FAMILY HISTORY:See Below SOCIAL HISTORY:See Below HOME MEDICATIONS:See Below ALLERGIES:See Below VITALS:See Below PHYSICAL EXAMINATION: GENERAL: Sitting up in bed, alert, well appearing, well nourished, no distress, non-toxic EYE EXAM: normal conjunctiva. OROPHARYNX: mucous membranes are moist NECK: supple, no nuchal rigidity, no adenopathy, non-tender LUNGS: Clear to auscultation. Normal chest wall mechanics HEART: no murmurs, S1 normal and S2 normal ABDOMEN: abdomen soft, non-tender, normo-active bowel sounds, no masses, no rebound or guarding. UPPER EXTREMITIES: upper extremities are grossly normal. LOWER EXTREMITIES: No pitting edema. NEURO EXAM: Normal sensorium, cranial nerves II-XII grossly intact, normal speech, no gross weakness of arms, no gross weakness of legs. MEDICAL DECISION MAKING: Patient is a 57-year-old male who presents ER for above-stated complaint. IV was established blood work is obtained. External records reviewed. Labs show no significant leukocytosis or anemia. BMP with slightly elevated chloride of 109. LFTs bilirubin was unremarkable. Lipase was normal. Troponin was negative. COVID-negative. Patient did have recurrence of his chest pain while he was here and consequently he was given nitro and the pain completely reso lved. He received aspirin prior to arrival. He did have a recent cath with only 30% lesions in the LAD and on the right side. Favor that this is unlikely ACS especially in light of pain that he had for 3 days with negative troponin although it has been intermittent today and he had none yesterday. With his abnormal EKG although unchanged from previous and chest pain which has been waxing and waning which resolves with nitro patient was discussed with the hospitalist Dr. Yamile Sewell for further evaluation management and treatment from the hospitalist standpoint. He was updated at bedside. Triage Nursing notes reviewed. Limited review of prior medical records performed Vital Signs: reviewed and remarkable for no significant abnormalities Differential diagnosis: Cardiac ischemia, aortic dissection, pulmonary embolism, pneumothorax, pneumonia, pericarditis, myocarditis, esophageal rupture, GERD, cholecystitis, pancreatitis, musculoskeletal, as well as other pathologies. ER treatment provided: See below Diagnostics interpreted by me include EKG and cardiac monitoring as listed below: -Cardiac Monitoring: An order was placed for continuous cardiac monitoring. The monitor shows a rate of 50 with sinus rhythm. -ECG: Sinus rhythm rate of 48 Normal axis T wave inversion in the inferior leads as well as V3 through V6 ST depressions in V45 and 6 No significant change from December 30, 2022 -Laboratory studies:Interpreted by me as stated above in MDM and shown below. Imaging studies: Xrays: As interpreted by me: Portable AP upright 1 view of the chest shows no focal infiltrate CTs show: none Consultation(s): As described in MDM Procedures:none Critical Care: None Past Med/Surg History Medical History BPH w urinary obs/LUTS Cervical disc disease Dyslipidemia Mitral regurgitation Surgical History Hx of removal of cyst Sebaceous cyst removal 2009 (Dr. 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 Verified 02/10/13 20:47 Home Meds Home Medications Medication Instructions Recorded Confirmed rosuvastatin 10 mg tablet (Crestor) 10 mg PO DAILY 12/29/22 03/09/23 tamsulosin 0.4 mg capsule (Flomax) 0.4 mg PO DAILY 12/29/22 03/09/23 aspirin 81 mg tablet,delayed 81 mg PO HS 03/09/23 03/09/23 release Results & Data (ED) Vital Signs Vital Signs - 24 hr 03/09/23 09:49 03/09/23 09:54 03/09/23 09:58 Temperature 36.9 C Temperature Source Oral Pulse Rate 50 L 48 L Pulse Rate from SpO2 Sensor Pulse Rhythm Regular Pulse Strength Normal Respiratory Rate 18 Respiratory Effort / Characteristics Non-Labored Respiratory Depth Normal Blood Pressure 123/72 Blood Pressure Mean 89 Blood Pressure Position Lying Pulse Oximetry 94 95 Oxygen Delivery Method Room Air Room Air Sepsis Recent Fever Within 48 Hours No Sepsis New/Unexplained Change in Mental Status No Sepsis Action Taken by Nursing No Action Required 03/09/23 09:51 03/09/23 09:51 03/09/23 09:54 Temperature Temperature Source Pulse Rate 48 L Pulse Rate from SpO2 Sensor 49 L Pulse Rhythm Pulse Strength Respiratory Rate 13 Respiratory Effort / Characteristics Respiratory Depth Blood Pressure 123/72 120/75 Blood Pressure Mean 97 84 Blood Pressure Position Pulse Oximetry 96 Oxygen Delivery Method Sepsis Recent Fever Within 48 Hours Sepsis New/Unexplained Change in Mental Status Sepsis Action Taken by Nursing 03/09/23 09:54 03/09/23 10:00 03/09/23 10:00 Temperature Temperature Source Pulse Rate 47 L 52 L Pulse Rate from SpO2 Sensor 47 L 52 L Pulse Rhythm Pulse Strength Respiratory Rate 20 21 Respiratory Effort / Characteristics Respiratory Depth Blood Pressure 117/78 Blood Pressure Mean 80 Blood Pressure Position Pulse Oximetry 96 95 Oxygen Delivery Method Sepsis Recent Fever Within 48 Hours Sepsis New/Unexplained Change in Mental Status Sepsis Action Taken by Nursing 03/09/23 10:15 03/09/23 10:30 03/09/23 10:45 Temperature Temperature Source Pulse Rate 52 L 46 L 48 L Pulse Rate from SpO2 Sensor 51 L 46 L 49 L Pulse Rhythm Pulse Strength Respiratory Rate 19 19 19 Respiratory Effort / Characteristics Respiratory Depth Blood Pressure 114/79 Blood Pressure Mean 90 Blood Pressure Position Pulse Oximetry 93 93 97 Oxygen Delivery Method Sepsis Recent Fever Within 48 Hours Sepsis New/Unexplained Change in Mental Status Sepsis Action Taken by Nursing 03/09/23 11:00 03/09/23 11:15 03/09/23 11:45 Temperature Temperature Source Pulse Rate 46 L 47 L 42 L Pulse Rate from SpO2 Sensor 46 L 47 L 42 L Pulse Rhythm Pulse Strength Respiratory Rate 18 16 16 Respiratory Effort / Characteristics Respiratory Depth Blood Pressure 132/74 111/68 Blood Pressure Mean 93 82 Blood Pressure Position Pulse Oximetry 96 96 95 Oxygen Delivery Method Sepsis Recent Fever Within 48 Hours Sepsis New/Unexplained Change in Mental Status Sepsis Action Taken by Nursing 03/09/23 12:00 03/09/23 12:15 03/09/23 12:30 Temperature Temperature Source Pulse Rate 45 L 40 L 43 L Pulse Rate from SpO2 Sensor 44 L 41 L 43 L Pulse Rhythm Pulse Strength Respiratory Rate 14 18 12 Respiratory Effort / Characteristics Respiratory Depth Blood Pressure 104/63 104/68 Blood Pressure Mean 76 80 Blood Pressure Position Pulse Oximetry 94 96 95 Oxygen Delivery Method Sepsis Recent Fever Within 48 Hours Sepsis New/Unexplained Change in Mental Status Sepsis Action Taken by Nursing Laboratory Data 03/09/23 09:56 03/09/23 09:56 Lab Results 03/09/23 03/09/23 03/09/23 Range/Units 09:56 09:56 12:38 WBC 8.03 (4.8-10.8) K/ul RBC 5.09 (4.70-6.10) M/uL Hgb 14.6 (14.0-18.0) g/dl Hct 43.0 (42.0-52.0) % MCV 84.5 (80.0-100.0) fL MCH 28.7 (25.0-34.0) pg MCHC 34.0 (32.0-36.0) g/dL RDW Std Deviation 40.7 (36.4-46.3) fL RDW Coeff of Job 13.2 (11.5-14.5) % Plt Count 238 (130-400) K/uL MPV 9.7 (9.4-12.4) fL Neutrophils % (Manual) 38 % Lymphocytes % (Manual) 16 % Reactive Lymphs % (Man) 40 % Monocytes % (Manual) 5 % Eosinophils % (Manual) 1 % Neutrophils # (Manual) 3.05 (1.40-6.50) K/uL Total Absolute Neuts 3.05 (1.4-6.5) K/uL Lymphocytes # (Manual) 1.28 (1.2-3.4) K/uL Reactive Lymphs # 3.21 K/uL Total Abs Lymphocytes 4.50 H (1.2-3.4) K/uL Monocytes # (Manual) 0.40 (0.11-0.59) K/uL Eosinophils # (Manual) 0.08 (0-0.50) K/uL Sodium 138 (136-145) mmol/L Potassium 4.4 (3.5-5.1) mmol/L Chloride 109 H (98-107) mmol/L Carbon Dioxide 26 (21-32) mmol/L Anion Gap 3 (3-11) BUN 14 (6-23) mg/dl Creatinine 1.19 (0.6-1.4) mg/dl Est Cr Clr Drug Dosing 73.0 ml/min Est GFR ( Amer) 77.6 ml/min Est GFR (Non-Af Amer) 66.9 ml/min BUN/Creatinine Ratio 11.8 (10-20) Glucose 94 (70-99(Fasting)) mg/dl Calcium 9.0 (8.6-10.3) mg/dl Total Bilirubin 0.5 (0.2-1.0) mg/dl AST 24 (13-39) U/L ALT 29 (7-52) U/L Alkaline Phosphatase 63 (34-104) U/L Troponin I High Sens 5.4 (0-20) pg/ml Total Protein 6.4 (6.0-8.3) gm/dl Albumin 3.9 (3.4-5.0) gm/dl Globulin 2.5 (2.5-4.0) gm/dl Albumin/Globulin Ratio 1.6 (0.9-2) Lipase 46 (11-82) U/L SARS-CoV-2, RNA, NAAT NEGATIVE (NEGATIVE) Administered Medications Nitroglycerin (Nitroglycerin Sl 0.4 Mg/Tab Tab) 0.4 mg SL Q5M PRN PRN Reason: Chest Pain Stop: 04/08/23 11:12 Last Admin: 03/09/23 11:17 Dose: 0.4 mg Documented By: SOWMYA Discontinued Medications Aspirin (Aspirin Chew 324 Mg) 324 mg PO NOW STA Stop: 03/09/23 11:14 Last Admin: 03/09/23 11:18 Dose: Not Given Documented By: SOWMYA Imaging Data Radiologist's Impression: Chest X-Ray 03/09/23 09:55 SINGLE VIEW CHEST CLINICAL HISTORY: Atypical chest pain. FINDINGS: An AP, portable, upright chest radiograph is compared to study dated 12/29/2022. The heart is mildly enlarged. The pulmonary vasculature is noncongested. The lungs and pleural spaces are clear noting mild bibasilar atelectasis. No pneumothorax is seen. The bony thorax is grossly intact. IMPRESSION: No acute cardiopulmonary abnormality. ACT 112: Negative or not required by law. Electronically signed by: Fan Sargent M.D. 03/09/2023 10:20 AM Discharge Plan Visit Data Chief Complaint: Chest Pain ED Provider: Iron Virk Discharge Problem: Chest pain, Abnormal ECG, Apical variant hypertrophic cardiomyopathy
--- NOTE | 2023-03-09 12:26 | History & Physical Report ---
Date of Service March 09, 2023 Assessment & Plan (1) Left-sided chest pain: (2) Abnormal ECG: (3) Apical variant hypertrophic cardiomyopathy: (4) Dyslipidemia: Plan: - Admit to tele for observation for r/o - Trend cardiac biomarkers, initial set was negative at 5-chest pain ongoing times past 4 days, likely would have seen elevation in troponin, reports his pain is more of a "nuisance" - Received nitro x2 with improvement in symptoms - EKG reviewed as above showing sinus bradycardia, ST wave changes appear to be chronic compared to previous EKG from December - Last Echo reviewed from 12/29/22 showing EF of 60 to 65%, mild concentric LVH, apical hypertrophy present, mild MR, mild TR-no need to repeat unless otherwise suggested by cardiology - Cardiac MRI is scheduled for March 20 in [place] - Consult cardiology - Last A1c was 5.6 on 12/30/2022, lipids reviewed and can continue rosuvastatin 10 mg daily (5) BPH w urinary obs/LUTS: Plan: - Continue flomax daily (6) Obesity (BMI 30.0-34.9): Plan: - Cont exercise regimen with walking - diet and lifestyle modification discussed at bedside DVT PPx: - teds, scds CODE: Full code Dispo: From home, likely to remain in the hospital x 1-2 days A total of 75 minutes were spent with greater than 50% of that time face to face with the patient, personally reviewing all current laboratories, imaging studies, past medication reconciliation, outpatient chart review, and discussion with specialists to collaborate care for the patient with attending. Please see attending documentation for corrections and/or additions. History of Present Illness Chief Complaint: Chest pain Primary Care Provider: Raul Travis DO This is a 57-year-old male with PMHx of CAD with mild occlusive disease s/p cath, HLD, who presented from PCP office due to retrosternal chest heaviness x4 days. Patient reports that his PCP visit was a routine 6-month visit today. He states this chest pain has occurred nearly constantly since last . Reports his chest pain has been a "nuisance" rating it a 1/10, compared to his previous chest pain in December where the pain woke him from his sleep. He took 2 nitro tablets with some minimal improvement in pain today, one was at the office, the second was here in the ER. He admits to having some dizziness last with his chest pain worsened with getting up and sitting down. It went away by itself and was not there Thursday or Thursday. Pt states yesterday (Thursday) he felt fine, and then again today developed the chest pain this morning. He has been walking 2 miles 5/7 days a week, he did not do this over the past 4 days due to being camping, but did walk the dog for about 1 mile each day. He has a cardiac MRI scheduled for March 20 and is having an appt in [place] with Dr. Sales for apical variant hypertrophic cardiomyopathy. Pt has been doing well since December up until this point. Denies tobacco use, admits to drinking occasional alcohol with few beers or rum and coke. He has been compliant with taking his medications taking them all in the evening. Family Hx: significant in his Mothers side for cardiac disease Maternal Grandfather age 50 from [place] Brother : [place] age 52 when had first, alive Brother: [place] x 3 age 62, alive Allergies Allergy/AdvReac Type Severity Reaction Status Date / Time codeine Allergy . Verified 02/10/13 20:47 Home Medications Medication Instructions Recorded Confirmed Type rosuvastatin 10 mg tablet (Crestor) 10 mg PO DAILY 12/29/22 03/09/23 History tamsulosin 0.4 mg capsule (Flomax) 0.4 mg PO DAILY 12/29/22 03/09/23 History aspirin 81 mg tablet,delayed 81 mg PO HS 03/09/23 03/09/23 History release Past Med/Surg History Medical History BPH w urinary obs/LUTS Cervical disc disease Dyslipidemia Mitral regurgitation Pleurisy Surgical History Hx of removal of cyst Sebaceous cyst removal 2009 (Dr. 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 Beliefs That Will Affect Care: None Current Living Situation: Spouse Other Information That Helps Us Care for You: No Feels Safe at Home: Yes Safety Concerns: Feels Safe At This Time Assistive Devices: Glasses Review of Systems Review of Systems: Constitutional: No fever, sweats or chills Eyes: No diplopia, no worsening or blurred vision ENT: normal hearing, no trouble swallowing Respiratory: No cough, sputum, dyspnea at rest or on exertion Cardiovascular: As per HPI - currently minimal chest pain rated 1/10, tightness or palpitations Abdomen: No pain, nausea, vomiting, diarrhea or constipation Musculoskeletal: No joint pain, calf pain, swelling Neurologic: No weakness, numbness/tingling, or balance problems Psychiatric: No anxiety or depression Skin: No rash or itch Physical Exam Physical Exam: General: awake, alert, no apparent distress Head: Normocephalic, atraumatic ENT: PERRL, EOMI, no pharyngeal exudate, mucous membranes moist Chest: Clear to auscultation, on room air, no adventitious breath sounds Cardiac: Sinus bradycardia with HR in low 50s at bedside, no murmur, no JVD, normal peripheral pulses, good capillary refill Abdominal: NABS x 4 quadrants, soft, nondistended, nontender to palpation, no rebound or guarding Extremities: Normal inspection, no peripheral edema or erythema, calfs nontender to palpation Psych: Normal mood and affect Neuro: AAO x 3, strength intact bilaterally and rated 5/5, no motor deficits, speech is clear, no peripheral sensory deficits Results & Data Results & Data Vital Signs (Past 12 Hours) Vital Signs Temp Pulse Resp BP Pulse Ox O2 Del Method 03/09/23 09:58 95 Room Air 03/09/23 09:54 48 L 03/09/23 09:49 36.9 C 50 L 18 123/72 94 Room Air Laboratory Results 03/09/23 03/09/23 03/09/23 12:38 09:56 09:56 WBC 8.03 RBC 5.09 Hgb 14.6 Hct 43.0 MCV 84.5 MCH 28.7 MCHC 34.0 RDW Std Deviation 40.7 RDW Coeff of Job 13.2 Plt Count 238 MPV 9.7 Neutrophils % (Manual) 38 Lymphocytes % (Manual) 16 Reactive Lymphs % (Man) 40 Monocytes % (Manual) 5 Eosinophils % (Manual) 1 Neutrophils # (Manual) 3.05 Total Absolute Neuts 3.05 Lymphocytes # (Manual) 1.28 Reactive Lymphs # 3.21 Total Abs Lymphocytes 4.50 H Monocytes # (Manual) 0.40 Eosinophils # (Manual) 0.08 Sodium 138 Potassium 4.4 Chloride 109 H Carbon Dioxide 26 Anion Gap 3 BUN 14 Creatinine 1.19 Est Cr Clr Drug Dosing 73.0 Est GFR ( Amer) 77.6 Est GFR (Non-Af Amer) 66.9 BUN/Creatinine Ratio 11.8 Glucose 94 Calcium 9.0 Total Bilirubin 0.5 AST 24 ALT 29 Alkaline Phosphatase 63 Troponin I High Sens 5.4 Total Protein 6.4 Albumin 3.9 Globulin 2.5 Albumin/Globulin Ratio 1.6 Lipase 46 SARS-CoV-2, RNA, NAAT NEGATIVE Diagnostic Findings Chest X-Ray 03/09/23 09:55 SINGLE VIEW CHEST CLINICAL HISTORY: Atypical chest pain. FINDINGS: An AP, portable, upright chest radiograph is compared to study dated 12/29/2022. The heart is mildly enlarged. The pulmonary vasculature is noncongested. The lungs and pleural spaces are clear noting mild bibasilar atelectasis. No pneumothorax is seen. The bony thorax is grossly intact. IMPRESSION: No acute cardiopulmonary abnormality. ACT 112: Negative or not required by law. Electronically signed by: Fan Sargent M.D. 03/09/2023 10:20 AM ECG Additional Comments: Sinus bradycardia Minimal voltage criteria for LVH, may be normal variant ( R in aVL ) ST & Marked T wave abnormality consider anterolateral ischemia Vent. rate 48 BPM GA interval 172 ms QRS duration 88 ms QT/QTc 458/409 ms Code Status & VTE Plan Code Status Full code -discussed with patient and his at bedside Supervising Physician Co-Signing Physician Notes I have seen and examined the patient and have discussed the case with the provider above. I agree with the assessment and plan as stated with the following exceptions. 57 yo patient with HOCM recently admitted with atypical chest pain s/p cardiac catheterization as noted above. He presents again today after 2-3 days of contact, less intense but same quality/distribution of pain as he had before. Pain was improved wtih nitroglycerin. Denies SOB, diaphoresis, nausea, lightheadedness or other symptoms today. On exam he is hemodynamically stable, afebrile and oxygenating well on room air. He appears very comfortable and reports pain is resolved after second dose of nitro in the ER today. (Given first dose in clinic along with ASA 325mg). Lungs CTAB, normal respiratory effort. CV exam reveals S1/2 heard without murmurs, gallops or rubs, no peripheral edema. Appears euvolemic. Skin warma nd dry and no gross focal neuromuscular deficits present. Workup includes an EKG with TWI in anterior leads and TWI in lateral leads, similar to previous EKGs. HS trop is 5.4 and CBC and chem panel within normal limits. Atypical chest pain of uncertain etiology. After taking Indomethacin for 7 days after recent discharge, the patient doesn't think this is what really helped him. Retrospectively he feels his pain resolved spontaneously around the time he was discharged. He doesn't have any apparent triggers to his pain or alleviating factors. Consider coronary vasospasm in the differential vs pericardial disease. GI cause such as peptic ulcer or acid reflux (patient denies symptoms), gallbladder disease with referral of pain. Patient is low r isk for PE or aortic dissection, but workup may be considered if no improvement or clinical worsening. This is not an exhaustive list. Cont to trend troponin and EKG on a heart monitored floor. Consult cardiology. DO Donato
[2023-03-09] MEDS ORDERED: ONDANSETRON INJ 2 MG/ML 2 ML VIAL IV PRN (15:46)
[2023-03-09] MEDS ORDERED: ACETAMINOPHEN 325 MG TAB PO PRN (15:46)
--- NOTE | 2023-03-09 16:02 | Cardiology Consultation ---
Date of Consultation March 09, 2023 Assessment & Plan (1) Apical variant hypertrophic cardiomyopathy: (2) Left-sided chest pain: (3) Dyslipidemia: (4) Sinus bradycardia: Plan Patient is a 57-year-old male with known apical hypertrophic cardiomyopathy with typical (abnormal) EKG with deep T wave inversion anterolateral precordial leads. Prior diagnostic coronary angiography December 2022 with minor coronary atherosclerosis without obstruction. Presents now with symptoms of vague chest pressure grade 1/10 times several days duration. Symptoms not suggestive of acute angina though resting bradycardia noted on telemetry. Do not suspect acute coronary syndrome though cardiac enzymes cycled We will follow on telemetry overnight discussed all results with patient in detail Would continue prehospital medications History of Present Illness Reason for Consultation: Chest pain Requesting Physician: Dr. Sewell Attending Physician: Erich Horta MD History of Present Illness Patient is a 57-year-old male with ongoing cardiac concerns include 1. Apical variant hypertrophic cardiomyopathy with typical associated abnormal EKG findings 2. Mild coronary atherosclerosis by cardiac catheterization 12/29/2022 3. Acute postviral pleuritis December 2016 Patient presents for ER evaluation after noting at routine PCP appointment this morning episodes of vague chest pressure sensation several days in duration. Not specifically exertional related in fact patient continues to exercise on a near daily basis with good tolerance to activity. No shortness of breath no tachypalpitations no syncope or near syncope. No fevers chills or unexplained infections. No bleeding difficulties. Occasional indigestion heartburn but no sleep disruption or food intolerances. Tolerating current medications. Chronic resting bradycardia present on ER evaluation and outpatient Allergies Allergy/AdvReac Type Severity Reaction Status Date / Time codeine Allergy . Verified 02/10/13 20:47 Home Medications Medication Instructions Recorded Confirmed Type rosuvastatin 10 mg tablet (Crestor) 10 mg PO DAILY 12/29/22 03/09/23 History tamsulosin 0.4 mg capsule (Flomax) 0.4 mg PO DAILY 12/29/22 03/09/23 History aspirin 81 mg tablet,delayed 81 mg PO HS 03/09/23 03/09/23 History release Patient History Medical History BPH w urinary obs/LUTS Cervical disc disease Dyslipidemia Mitral regurgitation Pleurisy Surgical History Hx of removal of cyst Sebaceous cyst removal 2009 (Dr. 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 Analyst Required: No Beliefs That Will Affect Care: None Current Living Situation: Spouse Feels Safe at Home: Yes Assistive Devices: None and Glasses Review of Systems Review of Systems: All systems reviewed & are unremarkable except as noted in HPI & below Physical Exam Constitutional: WD/WN, vitals as above Eyes: PERRL, conjunctivae normal, anicteric sclerae ENMT: external ear and nose normal, oropharynx normal Neck: trachea midline, no thyromegaly Respiratory: normal respiratory effort, lungs clear to auscultation Cardiovascular: Rate/Rhythm: regular rate, regular rhythm and + bradycardic Heart Sounds: normal S1 and normal S2; no gallop, no murmur and no cardiac rub Palpation: normal PMI Vessels: normal carotid upstroke and radial pulses present; no JVD and no carotid bruit Extremities: no edema Gastrointestinal (Abdomen): normal bowel sounds, soft, nontender, no hepatosplenomegaly Musculoskeletal: no cyanosis or clubbing, extremities motor strength 5/5 Skin: no rashes, warm and dry Neurologic: PERRL, EOMI, accommodation nl, no face palsy, no dysarthria Psychiatric: A+Ox3, euthymic affect Results & Data Vital Signs (Past 12 Hours) Vital Signs Temp Pulse Pulse Resp BP BP Pulse Ox 03/09/23 15:51 36.5 C 47 L 16 135/79 96 03/09/23 15:51 03/09/23 13:00 43 L 16 117/66 95 03/09/23 12:45 44 L 15 95 03/09/23 12:30 43 L 12 104/68 95 03/09/23 12:15 40 L 18 96 03/09/23 12:00 45 L 14 104/63 94 03/09/23 11:45 42 L 16 95 03/09/23 11:15 47 L 16 111/68 96 03/09/23 11:00 46 L 18 132/74 96 03/09/23 10:45 48 L 19 97 03/09/23 10:30 46 L 19 114/79 93 03/09/23 10:15 52 L 19 93 03/09/23 10:00 52 L 21 95 03/09/23 10:00 117/78 03/09/23 09:54 47 L 20 96 03/09/23 09:54 120/75 03/09/23 09:51 48 L 13 96 03/09/23 09:51 123/72 03/09/23 09:58 95 03/09/23 09:54 48 L 03/09/23 09:49 36.9 C 50 L 18 123/72 94 Pulse Ox O2 Del Method O2 Del Method O2 Flow Rate 03/09/23 15:51 Room Air 03/09/23 15:51 96 Room Air 0 03/09/23 13:00 03/09/23 12:45 03/09/23 12:30 03/09/23 12:15 03/09/23 12:00 03/09/23 11:45 03/09/23 11:15 03/09/23 11:00 03/09/23 10:45 03/09/23 10:30 03/09/23 10:15 03/09/23 10:00 03/09/23 10:00 03/09/23 09:54 03/09/23 09:54 03/09/23 09:51 03/09/23 09:51 03/09/23 09:58 Room Air 03/09/23 09:54 03/09/23 09:49 Room Air Laboratory Results Laboratory Results - last 24 hr 03/09/23 03/09/23 03/09/23 09:56 09:56 12:38 WBC 8.03 RBC 5.09 Hgb 14.6 Hct 43.0 MCV 84.5 MCH 28.7 MCHC 34.0 RDW Std Deviation 40.7 RDW Coeff of Job 13.2 Plt Count 238 MPV 9.7 Neutrophils % (Manual) 38 Lymphocytes % (Manual) 16 Reactive Lymphs % (Man) 40 Monocytes % (Manual) 5 Eosinophils % (Manual) 1 Neutrophils # (Manual) 3.05 Total Absolute Neuts 3.05 Lymphocytes # (Manual) 1.28 Reactive Lymphs # 3.21 Total Abs Lymphocytes 4.50 H Monocytes # (Manual) 0.40 Eosinophils # (Manual) 0.08 Sodium 138 Potassium 4.4 Chloride 109 H Carbon Dioxide 26 Anion Gap 3 BUN 14 Creatinine 1.19 Est Cr Clr Drug Dosing 73.0 Est GFR ( Amer) 77.6 Est GFR (Non-Af Amer) 66.9 BUN/Creatinine Ratio 11.8 Glucose 94 Calcium 9.0 Total Bilirubin 0.5 AST 24 ALT 29 Alkaline Phosphatase 63 Troponin I High Sens 5.4 Total Protein 6.4 Albumin 3.9 Globulin 2.5 Albumin/Globulin Ratio 1.6 Lipase 46 SARS-CoV-2, RNA, NAAT NEGATIVE Diagnostic Findings Cardiac event monitor 02/16/2023, 14 days Sinus rhythm average rate 69 bpm with 4 runs of supraventricular tachycardia longest 16.6 seconds at a rate of 102 bpm. Rare atrial and ventricular ectopy
[2023-03-09] MEDS ORDERED: TAMSULOSIN HCL 0.4 MG CAP PO SCH (21:00)
[2023-03-09] MEDS ORDERED: ASPIRIN 81 MG ECTAB PO SCH (21:00)
[2023-03-09] MEDS ORDERED: ROSUVASTATIN CALCIUM 10 MG TAB PO SCH (21:00)
[2023-03-10 06:59] LABS: Hematocrit (blood only) 40.9 % (42.0-52.0); Hemoglobin 14.6 g/dl (14.0-18.0); Mean Corpuscular Hemoglobin 29.2 pg (25.0-34.0); Mean Corpuscular Hgb Conc 35.7 g/dL (32.0-36.0); Mean Corpuscular Volume 81.8 fL (80.0-100.0); Mean Platelet Volume 9.6 fL (9.4-12.4); Platelet Count 210 K/uL (130-400); RDW Coefficient of Variation 13.3 % (11.5-14.5); RDW Standard Deviation 39.5 fL (36.4-46.3); White Blood Count 6.64 K/ul (4.8-10.8)
[2023-03-10 07:31] LABS: BUN Creatinine Ratio 14.3 (10-20); Calcium 8.4 mg/dl (8.6-10.3); Creatinine Clr Calc Pharmacy 87.1 ml/min; Est GFR (African American) 98.1 ml/min; Est GFR (Non-African American) 84.6 ml/min; Magnesium 2.1 mg/dl (1.7-2.4); Potassium 4.2 mmol/L (3.5-5.1)
--- NOTE | 2023-03-10 08:49 | Electrocardiogram Report ---
Test Reason : Blood Pressure : / mmHG Vent. Rate : 048 BPM Atrial Rate : 048 BPM P-R Int : 172 ms QRS Dur : 088 ms QT Int : 458 ms P-R-T Axes : 071 -12 243 degrees QTc Int : 409 ms Sinus bradycardia Minimal voltage criteria for LVH, may be normal variant ( R in aVL ) Abnormal ECG When compared with ECG of 30-DEC-2022 08:06, No significant change was found Confirmed by Dom Mckenzie ([id number]) on 03/10/2023 8:48:54 AM Referred By: Confirmed By:Dom Mckenzie
[2023-03-10] MEDS ORDERED: ENOXAPARIN INJ 40 MG/0.4 ML SYR SQ SCH (09:00)
--- NOTE | 2023-03-10 11:51 | Hospitalist Progress Note ---
Date of Service March 10, 2023 Assessment & Plan (1) Left-sided chest pain: Plan: - Admitted to [facility] for observation for r/o -No more chest pain since admission - Trend cardiac biomarkers -remains stable, - Received nitro x2 with improvement in symptoms - EKG reviewed as above showing sinus bradycardia, ST wave changes appear to be chronic compared to previous EKG from December - Last Echo reviewed from 12/29/22 showing EF of 60 to 65%, mild concentric LVH, apical hypertrophy present, mild MR, mild TR-no need to repeat unless otherwise suggested by cardiology - Cardiac MRI is scheduled for March 20 in [place] -Appreciate cardiology input and recommendation -Can be discharged this afternoon-was advised to keep appointment for cardiac MRI in [place] (2) Abnormal ECG: Plan: Secondary to cardiomyopathy (3) Apical variant hypertrophic cardiomyopathy: Plan: Concerning chest pain could be secondary to related to cardiomyopathy (4) Dyslipidemia: Plan: Has been on statin (5) BPH w urinary obs/LUTS: Plan: - Continue flomax daily (6) Obesity (BMI 30.0-34.9): Plan: - Cont exercise regimen with walking - diet and lifestyle modification discussed at bedside DVT PPx: - teds, scds CODE: Full code Admission and Anticipated Discharge Date Admission Date: March 09, 2023 Subjective 03/10/2023 The patient was seen and examined in telemetry unit He has been complaining of chest pain which lasts sometimes for hours without any associated symptoms of dizziness, shortness of breath, sweating, nausea and or vomiting No radiation of the pain He has history of cardiomyopathy and is worried about cardiac pain Has been stable since admission and denies any pain today Review of Systems Review of Systems: All systems reviewed and are unremarkable except as noted below Physical Exam Physical Exam: Sitting on a chair without any acute distress Constitutional: well developed, well nourished and + obese; not ill appearing Eyes: PERRL, conjunctivae normal, anicteric sclerae ENMT: external ear and nose normal, oropharynx normal Neck: trachea midline, no thyromegaly Respiratory: no respiratory distress Auscultation: lungs clear to auscultation bilaterally Cardiovascular: Rate/Rhythm: regular rate, regular rhythm and + bradycardic Heart Sounds: normal S1, normal S2 and + murmur Extremities: no edema Gastrointestinal (Abdomen): Inspection/Auscultation: normal bowel sounds; abdomen not distended Percussion/Palpation: abdomen soft; abdomen nontender Musculoskeletal: No acute arthritis involving any joint Neurologic: normal touch/pain/proprioception and moves all extremities; no focal motor deficits Psychiatric: A+Ox3, euthymic affect Lymphatic: no cervical or axillary lymphadenopathy Results & Data Results & Data Vital Signs (Past 12 Hours) Vital Signs Temp Pulse Resp BP Pulse Ox O2 Del Method 03/10/23 11:36 36.6 C 56 L 20 124/72 95 Room Air 03/10/23 07:52 36.6 C 48 L 18 113/73 94 Room Air 03/10/23 03:33 36.5 C 50 L 16 118/70 95 Room Air Laboratory Results Short CBC 03/10/23 Range/Units 06:30 WBC 6.64 (4.8-10.8) K/ul Hgb 14.6 (14.0-18.0) g/dl Hct 40.9 L (42.0-52.0) % Plt Count 210 (130-400) K/uL BMP 03/10/23 06:30 Sodium 138 Potassium 4.2 Chloride 111 H Carbon Dioxide 23 BUN 14 Creatinine 0.98 Glucose 105 H Calcium 8.4 L Medications Administered Current Inpatient Medications Acetaminophen (Acetaminophen 325 Mg Tab) 650 mg PO Q4H PRN PRN Reason: Moderate Pain (Scale 4, 5, 6) Stop: 04/08/23 15:45 Aspirin (Aspirin 81 Mg Ectab) 81 mg PO HS [facility] Stop: 04/08/23 20:59 Last Admin: 03/09/23 20:42 Dose: 81 mg Enoxaparin Sodium (Enoxaparin Inj 40 Mg/0.4 Ml Syr) 40 mg SQ QAM [facility] Stop: 04/09/23 08:59 Last Admin: 03/10/23 09:00 Dose: Not Given Nitroglycerin (Nitroglycerin Sl 0.4 Mg/Tab Tab) 0.4 mg SL Q5M PRN PRN Reason: Chest Pain Stop: 04/08/23 11:12 Last Admin: 03/09/23 11:17 Dose: 0.4 mg Ondansetron HCl (Ondansetron Inj 2 Mg/Ml 2 Ml Vial) 4 mg IV Q4H PRN PRN Reason: Nausea And Vomiting Stop: 04/08/23 15:45 Rosuvastatin Calcium (Rosuvastatin Calcium 10 Mg Tab) 10 mg PO HS NISA Stop: 04/08/23 20:59 Last Admin: 03/09/23 20:42 Dose: 10 mg Tamsulosin HCl (Tamsulosin Hcl 0.4 Mg Cap) 0.4 mg PO [facility] Stop: 04/08/23 20:59 Last Admin: 03/09/23 20:42 Dose: 0.4 mg
--- NOTE | 2023-03-10 13:57 | Cardiology Progress Note ---
Date of Service March 10, 2023 Assessment & Plan (1) Apical variant hypertrophic cardiomyopathy: (2) Left-sided chest pain: (3) Dyslipidemia: (4) Sinus bradycardia: Plan Patient is a 57-year-old male with known apical hypertrophic cardiomyopathy with typical (abnormal) EKG with deep T wave inversion anterolateral precordial leads. Prior diagnostic coronary angiography December 2022 with minor coronary atherosclerosis without obstruction. Presents now with symptoms of vague chest pressure grade 1/10 times several days duration. Symptoms not suggestive of acute angina though resting bradycardia noted on telemetry. Do not suspect acute coronary syndrome though cardiac enzymes cycled We will follow on telemetry overnight discussed all results with patient in detail Would continue prehospital medications 03/10/2023 Feels well this morning no cardiac complaints. No evidence of cardiac concerns. Discussed in detail with patient with chronically abnormal EKG No tachycardia or bradycardia arrhythmia Okay for discharge on usual medications. Patient may resume usual activity. Complete cardiac MRI as scheduled Admission and Anticipated Discharge Date Admission Date: March 09, 2023 Subjective Patient seen and examined, chart, medications, telemetry reviewed. Feels well ambulatory in room and hallway. No arrhythmias on telemetry with baseline sinus bradycardia. No dizziness or lightheadedness. Cardiac enzymes normal EKG without change Physical Exam Constitutional: WD/WN, vitals as above Eyes: PERRL, conjunctivae normal, anicteric sclerae ENMT: external ear and nose normal, oropharynx normal Neck: trachea midline, no thyromegaly Respiratory: normal respiratory effort, lungs clear to auscultation Cardiovascular: Rate/Rhythm: regular rate, regular rhythm and + bradycardic Heart Sounds: normal S1 and normal S2; no gallop, no murmur and no cardiac rub Palpation: normal PMI Vessels: normal carotid upstroke and radial pulses present; no JVD and no carotid bruit Extremities: no edema Gastrointestinal (Abdomen): normal bowel sounds, soft, nontender, no hepatosplenomegaly Musculoskeletal: no cyanosis or clubbing, extremities motor strength 5/5 Skin: no rashes, warm and dry Neurologic: PERRL, EOMI, accommodation nl, no face palsy, no dysarthria Psychiatric: A+Ox3, euthymic affect Results & Data Vital Signs (Past 12 Hours) Vital Signs Temp Pulse Resp BP Pulse Ox O2 Del Method 03/10/23 11:36 36.6 C 56 L 20 124/72 95 Room Air 03/10/23 07:52 36.6 C 48 L 18 113/73 94 Room Air 03/10/23 03:33 36.5 C 50 L 16 118/70 95 Room Air Laboratory Results Laboratory Results - last 24 hr 03/09/23 03/09/23 03/10/23 16:45 22:37 06:30 WBC 6.64 RBC 5.00 Hgb 14.6 Hct 40.9 L MCV 81.8 MCH 29.2 MCHC 35.7 RDW Std Deviation 39.5 RDW Coeff of Job 13.3 Plt Count 210 MPV 9.6 Sodium Potassium Chloride Carbon Dioxide Anion Gap BUN Creatinine Est Cr Clr Drug Dosing Est GFR ( Amer) Est GFR (Non-Af Amer) BUN/Creatinine Ratio Glucose Calcium Magnesium Troponin I High Sens 3.7 5.3 03/10/23 06:30 WBC RBC Hgb Hct MCV MCH MCHC RDW Std Deviation RDW Coeff of Job Plt Count MPV Sodium 138 Potassium 4.2 Chloride 111 H Carbon Dioxide 23 Anion Gap 4 BUN 14 Creatinine 0.98 Est Cr Clr Drug Dosing 87.1 Est GFR ( Amer) 98.1 Est GFR (Non-Af Amer) 84.6 BUN/Creatinine Ratio 14.3 Glucose 105 H Calcium 8.4 L Magnesium 2.1 Troponin I High Sens
--- NOTE | 2023-03-10 17:30 | Discharge Summary ---
Date of Service March 10, 2023 Admission HPI Per Admitting Provider This is a 57-year-old male with PMHx of CAD with mild occlusive disease s/p cath, HLD, who presented from PCP office due to retrosternal chest heaviness x4 days. Patient reports that his PCP visit was a routine 6-month visit today. He states this chest pain has occurred nearly constantly since last . Reports his chest pain has been a "nuisance" rating it a 1/10, compared to his previous chest pain in December where the pain woke him from his sleep. He took 2 nitro tablets with some minimal improvement in pain today, one was at the office, the second was here in the ER. He admits to having some dizziness last with his chest pain worsened with getting up and sitting down. It went away by itself and was not there Thursday or Thursday. Pt states yesterday (Thursday) he felt fine, and then again today developed the chest pain this morning. He has been walking 2 miles 5/7 days a week, he did not do this over the past 4 days due to being camping, but did walk the dog for about 1 mile each day. He has a cardiac MRI scheduled for March 20 and is having an appt in [place] with Dr. Sales for apical variant hypertrophic cardiomyopathy. Pt has been doing well since December up until this point. Denies tobacco use, admits to drinking occasional alcohol with few beers or rum and coke. He has been compliant with taking his medications taking them all in the evening. Family Hx: significant in his Mothers side for cardiac disease Maternal Grandfather age 50 from [place] Brother : [place] age 52 when had first, alive Brother: [place] x 3 age 62, alive Admission Exam Per Admitting Provider Physical Exam: General: awake, alert, no apparent distress Head: Normocephalic, atraumatic ENT: PERRL, EOMI, no pharyngeal exudate, mucous membranes moist Chest: Clear to auscultation, on room air, no adventitious breath sounds Cardiac: Sinus bradycardia with HR in low 50s at bedside, no murmur, no JVD, normal peripheral pulses, good capillary refill Abdominal: NABS x 4 quadrants, soft, nondistended, nontender to palpation, no rebound or guarding Extremities: Normal inspection, no peripheral edema or erythema, calfs nontender to palpation Psych: Normal mood and affect Neuro: AAO x 3, strength intact bilaterally and rated 5/5, no motor deficits, speech is clear, no peripheral sensory deficits Principal Diagnosis Left-sided chest pain, no ACS, apical variant of hypertrophic cardiomyopathy Discharge Exam Sitting on a chair without any acute distress Constitutional well developed, well nourished and + obese; not ill appearing Eyes PERRL, conjunctivae normal, anicteric sclerae ENMT external ear and nose normal, oropharynx normal Neck trachea midline, no thyromegaly Respiratory no respiratory distress Auscultation: lungs clear to auscultation bilaterally Cardiovascular Rate/Rhythm: regular rate, regular rhythm and + bradycardic Heart Sounds: normal S1, normal S2 and + murmur Extremities: no edema Gastrointestinal (Abdomen) Inspection/Auscultation: normal bowel sounds; abdomen not distended Percussion/Palpation: abdomen soft; abdomen nontender Neurologic normal touch/pain/proprioception and moves all extremities; no focal motor deficits Psychiatric A+Ox3, euthymic affect Lymphatic no cervical or axillary lymphadenopathy Discharge Data Allergies Allergy/AdvReac Type Severity Reaction Status Date / Time codeine Allergy . Verified 02/10/13 20:47 Consultations 03/09/23 12:26 ED Decision to Admit Stat 03/09/23 15:46 Consult Cardiology Routine Hospital Course (1) Left-sided chest pain: - Admitted to tele for observation for r/o -No more chest pain since admission - Trend cardiac biomarkers -remains stable, - Received nitro x2 with improvement in symptoms - EKG reviewed as above showing sinus bradycardia, ST wave changes appear to be chronic compared to previous EKG from December - Last Echo reviewed from 12/29/22 showing EF of 60 to 65%, mild concentric LVH, apical hypertrophy present, mild MR, mild TR-no need to repeat unless otherwise suggested by cardiology - Cardiac MRI is scheduled for March 20 in [place] -Appreciate cardiology input and recommendation -Can be discharged this afternoon-was advised to keep appointment for cardiac MRI in [place] (2) Abnormal ECG: Secondary to cardiomyopathy (3) Apical variant hypertrophic cardiomyopathy: Concerning chest pain could be secondary to related to cardiomyopathy (4) Dyslipidemia: Has been on statin (5) BPH w urinary obs/LUTS: - Continue flomax daily (6) Obesity (BMI 30.0-34.9): - Cont exercise regimen with walking - diet and lifestyle modification discussed at bedside DVT PPx: - teds, scds CODE: Full code Total Time Total Time Spent Total Time Spent (In Minutes): 35 minutes Discharge Plan Discharge Items Patient Disposition: Home - Self-Care Reason For Visit: CHEST PAIN Discharge Diagnosis: Left-sided chest pain, no ACS, apical variant of hypertrophic cardiomyopathy Condition on Discharge: Good Activity: Resume your previous activity Non-emergency contact: Primary Care Provider Call non-emergency contact if: you have any medication questions and your symptoms worsen Follow-up/Referrals: Raul Travis DO [Primary Care Provider] - 03/16/23 12:00 pm Diet: Heart Healthy Addtl Attending Provider Instructions: Please take precautions to avoid falls No change in your current medications Please give appointment with your healthcare providers Pending Studies at Discharge: No Stand-Alone Forms: My [employer], Smoking Cessation Medications and DC Order Prescriptions: Continued aspirin 81 mg Tablet,Delayed Release (Dr/Ec) 81 mg PO HS tamsulosin [Flomax] 0.4 mg capsule 0.4 mg PO DAILY rosuvastatin [Crestor] 10 mg tablet 10 mg PO DAILY Discharge Orders: Discharge Order (Routine); Ordered 03/10/23 Ordered By: Jonel Ovalle Admission Data Admit Date/Time: 03/09/23 12:42 Attending Provider: Jonel Ovalle Admit Provider: Erich Horta Primary Care Provider: Raul Travis Other Providers: Juarez Montgomery ; Yamile Sewell ; Jony White ; Erich Horta Other Interventions: Discharge Summary Assessment (RN) Last Done: 03/10/23 14:22
== END 2023-03-10 14:24 | disposition home or self-care (01) ==
LOC: ED 09:45 → 2S 09:45 → SUATTDRO 12:42 → 2S 16:19